=== PATIENT | male | born 1965 | race Caucasian/White ===

== ENCOUNTER 2017-05-25 09:41 | Emergency (ER) | payer OTHER ==
[~2017-05-25] VITALS: Ht 175.3 cm; Wt 83.9 kg
[~2017-05-25 09:41] MED LIST: AMLODIPINE BESYL5 MG PO; DOXAZOSIN MESYLA1 MG PO; LISINOPRIL40 MG PO; MACROBID 100 M100 MG PO; METFORMIN HCL500 MG PO; METOPROLOL SUCC25 MG PO; MINOCYCLINE HC100 M1 PO; OMEPRAZOLE20 MG PO
[2017-05-25] MEDS ORDERED: PROSCAR5 MG PO (10:06)
[2017-05-25] MEDS ORDERED: FLOMAX0.4 MG PO (10:06)
[2017-05-25] MEDS ORDERED: NORCO 5-325 TA1 EACH PO (10:16)
[2017-05-25] MEDS ORDERED: BACLOFEN10 MG PO (10:16)
[2017-05-25] MEDS ORDERED: METHYLPREDNISOLO4 M1 PO (10:16)
== END 2017-05-25 10:49 | disposition home or self-care (01) ==
LOC: ED 09:41
DX: M54.40 Lumbago with sciatica, unspecified side (principal); I10 Essential (primary) hypertension; K21.9 Gastro-esophageal reflux disease without esophagitis; E11.9 Type 2 diabetes mellitus without complications; Z88.2 Allergy status to sulfonamides; Z88.1 Allergy status to other antibiotic agents; Z88.0 Allergy status to penicillin; Z88.8 Allergy status to other drugs, medicaments and biological substances; Z79.899 Other long term (current) drug therapy; Z79.84 Long term (current) use of oral hypoglycemic drugs
CPT/HCPCS: 96374; 99283; J1100

== ENCOUNTER 2020-01-20 12:47 | Emergency (ER) | payer OTHER ==
[~2020-01-20] VITALS: Ht 175.3 cm; Wt 83.9 kg
--- OUTSIDE RECORDS SUMMARY | ~2020-01-20 | XMS | Encounter Summary ---
Demographics + + + | Address | [address] | | | [place] [address] | + + + | Home Phone | | + + + | Preferred Language | Unknown | + + + | Marital Status | | + + + | Alevism Affiliation | Unknown | + + + | Race | Unknown | + + + | Ethnic Group | Unknown | + + + Author + + + | Author | [facility] | | | and [place] | + + + | Organization | [facility] | | | and [place] | + + + | Address | Unknown | + + + | Phone | Unavailable | + + + Support + + +---------+ + | Name | Relationship | Address | Phone | + + +---------+ + | Mary Crook | ECON | Unknown | | + + +---------+ + Care Team Providers + +------+ + | Care Curtain Feller Blindstitch Name | Role | Phone | + +------+ + | Hayden Mueller DO | PCP | | + +------+ + Encounter Details +--------+ + + + + | Date | Type | Department | Care Team | Description | +--------+ + + + + | 10/17/ | Imaging | [facility] | Provider, | | | 2018 | Exam | [facility] | [address] | | | | | IM[address] | | | | | [address] [place] | [place] [address] | | | | | [place] [address] | | | | | | [phone] | | | +--------+ + + + + Social History + +-------+ +--------+------+ | Tobacco Use | Types | Packs/Day | Years | Date | | | | | Used | | + +-------+ +--------+------+ | Never Assessed | | | | | + +-------+ +--------+------+ + + + | Sex Assigned at | Date Recorded | | | | + + + | Not on file | | + + + + + + + | Job Start Date | Occupation | Industry | + + + + | Not on file | Not on file | Not on file | + + + + + + + + | Travel History | Travel Start | Travel End | + + + + + + | No recent travel history available. | + + documented as of this encounter Plan of Treatment Not on filedocumented as of this encounter Procedures + +--------+ + + + | Procedure Name | Priori | Date/Time | Associated Diagnosis | Comments | | | ty | | | | + +--------+ + + + | XR LUMBAR SPINE 4 + | Routin | 06/16/2017 | | Results for this | | VW | e | 12:05 PM | | procedure are in the | | | | PDT | | results section. | + +--------+ + + + documented in this encounter Results XR Lumbar Spine 4 + Vw (06/16/2017 12:05 PM PDT) + + | Specimen | + + | | + + + + + | Narrative | Performed At | + + + | External films for comparison only - no result from [facility]. | [facility] | + + + + +---------+ + + | Performing | Address | City/State/Zipcode | Phone Number | | Organization | | | | + +---------+ + + | [facility] | | | | + +---------+ + + documented in this encounter Visit Diagnoses Not on filedocumented in this encounter"
--- OUTSIDE RECORDS SUMMARY | ~2020-01-20 | XMS | Clinical Summary ---
Demographics + + + | Address | [address] | | | [place] [address] | + + + | Home Phone | | + + + | Preferred Language | Unknown | + + + | Marital Status | | + + + | Gnosticism Affiliation | Unknown | + + + | Race | White | + + + | Ethnic Group | Not or | + + + Author + + + | Author | NON REVENUE LOCATIONS | + + + | Organization | NON REVENUE LOCATIONS | + + + | Address | Unknown | + + + | Phone | Unavailable | + + + Support + + +---------+ + | Name | Relationship | Address | Phone | + + +---------+ + | Ruthann Crook | ECON | Unknown | | + + +---------+ + Care Team Providers + +------+ + | Care Painter Helper Sign Name | Role | Phone | + +------+ + | Hayden Mueller DO | PCP | | + +------+ + Source Comments YAJAIRA is fully live on both [facility] Ambulatory and [facility] InPatient.[facility] Allergies + + + + + + | Active Allergy | Reactions | Severity | Noted | Comments | | | | | Date | | + + + + + + | Penicillins | Unknown | | 06/12/20 | | | | | | 13 | | + + + + + + | Sulfacetamide | Pruritus | | 06/12/20 | | | | | | 13 | | + + + + + + Medications + + + +---------+------+------+-------+ | Medication | Sig | Dispensed | Refills | Star | End | Statu | | | | | | t | Date | s | | | | | | Date | | | + + + +---------+------+------+-------+ | lisinopril 40 mg | Take 40 mg by mouth | | 0 | | | Activ | | Oral tablet | once daily. | | | | | e | + + + +---------+------+------+-------+ | OMEPRAZOLE ORAL | Take 20 mg by mouth. | | 0 | | | Activ | | | | | | | | e | + + + +---------+------+------+-------+ | Minocycline HCl | Take 100 mg by mouth | | 0 | | | Activ | | 100 mg Oral tablet | every twelve hours. | | | | | e | + + + +---------+------+------+-------+ | metoprolol | Take 50 mg by mouth | | 0 | | | Activ | | succinate 50 mg Oral | once daily at | | | | | e | | tablet extended | bedtime. 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 | + + + | Epistaxis | 06/12/2013 | + + + | Family history of genetic disorder | 06/12/2013 | + + + | Hypertension | 06/12/2013 | + + + Family History + + +-------+ + | Medical History | Relation | Name | Comments | + + +-------+ + | GI bleeding | Father | | | + + +-------+ + | HHT (hereditary | Father | | + gnetic test | | hemorrhagic | | | | | telangiectasia) | | | | + + +-------+ + | HHT (hereditary | Sister | juhi | + gnetic test | | hemorrhagic | | | | | telangiectasia) | | | | + + +-------+ + | PAVF (pulmonary | Sister | juhi | | | arteriovenous | | | | | fistula) | | | | + + +-------+ + | Non-contributory | Sister | rose mary | - gnetic test | + + +-------+ + + + + + + | Relation | Name | Status | Comments | + + + + + | Daughter | Kimberely | Alive | epistaxis. children: Talon (6), Nemo (3), | | | | | Denise(1) | + + + + + | Father | | Alive | prostate/bladder cancer,HTN, hht | + + + + + | Maternal Grandfather | | | | + + + + + | Maternal Grandmother | | | | + + + + + | Mother | | Alive | breast cancer,HTN | + + + + + | Paternal Grandfather | | | | + + + + + | Paternal Grandmother | | | | + + + + + | Sister | | Alive | kidney problems | + + + + + | Sister | | Alive | HHT | + + + + + | Sister | juhi | | | + + + + + | Sister | rose mary | | | + + + + + | Kareem | Matthew | Alive | occ epistaxis. children: man (2), Sussy | | | | | (1) | + + + + + Social History + +-------+ +--------+------+ | Tobacco Use | Types | Packs/Day | Years | Date | | | | | Used | | + +-------+ +--------+------+ | Never Smoker | | | | | + +-------+ +--------+------+ + + +---------+ + | Alcohol Use | Drinks/Week | oz/Week | Comments | + + +---------+ + | No | | | | + + +---------+ + + + + | Sex Assigned at [...] recent travel history available. | + + Last Filed Vital Signs + + + + + | Vital Sign | Reading | Time Taken | Comments | + + + + + | Blood Pressure | 173/109 | 06/12/2013 2:28 PM | | | | | PDT | | + + + + + | Pulse | 93 | 06/12/2013 2:28 PM | | | | | PDT | | + + + + + | Temperature | 36.7 C (98 F) | 06/12/2013 2:28 PM | | | | | PDT | | + + + + + | Respiratory Rate | 16 | 06/12/2013 2:28 PM | | | | | PDT | | + + + + + | Oxygen Saturation | 98% | 06/12/2013 2:28 PM | | | | | PDT | | + + + + + | Inhaled Oxygen | - | - | | | Concentration | | | | + + + + + | Weight | 83.6 kg (184 lb 3.2 | 06/12/2013 2:28 PM | | | | oz) | PDT | | + + + + + | Height | 175.3 cm (5' 9") | 06/12/2013 2:28 PM | | | | | PDT | | + + + + + | Body Mass Index | 27.2 | 06/12/2013 2:28 PM | | | | | PDT | | + + + + + Plan of Treatment + + + + + | Health Maintenance | Due Date | Last Done | Comments | + + + + + | Influenza (Flu) | | | | | vaccination (#1) | 9 | | | + + + + + | Pneumococcal | Aged Out | | No longer eligible | | vaccination | | | based on patient's | | | | | age to complete this | | | | | topic | + + + + + Results Not on filefrom Last 3 Months Insurance + +--------+ +--------+-------+---------+------+ | Payer | Benefi | Subscriber | Effect | Phone | Address | Type | | | t Plan | ID | [place] | | | | | | / | | Dates | | | | | | Group | | | | | | + +--------+ +--------+-------+---------+------+ | [employer] | PROVID | [id number] | Effect | | | PPO | | | ENCE | | [place] | | | | | | PREF | | for | | | | | | | | all | | | | | | | | dates | | | | + +--------+ +--------+-------+---------+------+ + +--------+ +--------+ + + | Guarantor Name | Accoun | Relation to | Date | Phone | Billing Address | | | t Type | Patient | of | | | | | | | | | | + +--------+ +--------+ + + | Edgard Crook | Person | Self [birth year] | [address] | | | al/Fam | | 1965 | [phone] | [place] | | | [place] | | | 0 (Home) | [id number] | + +--------+ +--------+ + +
--- OUTSIDE RECORDS SUMMARY | ~2020-01-20 | XMS | Encounter Summary ---
Demographics + + + | Address | [address] | | | [place] [address] | + + + | Home Phone | | + + + | Preferred Language | Unknown | + + + | Marital Status | | + + + | Restorationist Affiliation | Unknown | + + + | Race | Unknown | + + + | Ethnic Group | Unknown | + + + Author + + + | Author | [facility] | | | and [place] | + + + | Organization | [facility] | | | and [place] [...] Team Providers + +------+ + | Care Electrical And Radio Aircraft Mechanic Name | Role | Phone | + +------+ + | Hayden Mueller DO | PCP | | + +------+ + Reason for Visit + + + | Reason | Comments | + + + | Medication Refill | Gabapentin 300 mg | + + + Encounter Details +--------+--------+ + + + | Date | Type | Department | Care Team | Description | +--------+--------+ + + + | 05/30/ | Refill | [facility] | Win, | Medication Refill | | 2017 | | [address] [address] | [address] | (Gabapentin 300 mg ) | | | | [address] | [address] | | | | | [place], [place] | [place] [address] | | | | | [address] | [phone] | | | | | [phone] | | | +--------+--------+ + + + Social History + +-------+ +--------+------+ | Tobacco Use | Types | Packs/Day | Years | Date | | | | | Used | | + +-------+ +--------+------+ | Never Smoker | | | | | + +-------+ +--------+------+ + +---+---+---+ | Smokeless Tobacco: | | | | | Never Used | | | | + +---+---+---+ + + +---------+ + | Alcohol Use | Drinks/Week | oz/Week | Comments | + + +---------+ + | Yes | | | RARE | + + +---------+ + + + [...] Not on filedocumented as of this encounter Visit Diagnoses Not on filedocumented in this encounter"
--- OUTSIDE RECORDS SUMMARY | ~2020-01-20 | XMS | Encounter Summary ---
Demographics + + + | Address | [address] | | | [place] [address] | + + + | Home Phone | | + + + | Preferred Language | Unknown | + + + | Marital Status | | + + + | Buddhism Affiliation | Unknown | + + + | Race | Unknown | + + + | Ethnic Group | Unknown | + + + Author + + + | Author | [facility] | | | and [place] | + + + | Organization | [facility] | | | and [place] | [...] Team Providers + +------+ + | Care Apns Name | Role | Phone | + +------+ + | Hayden Mueller DO | PCP | | + +------+ + Reason for Visit + + + | Reason | Comments | + + + | Back Pain | low back pain | + + + | Neck Pain | right sided neck pain with numbness into right hand | + + + Evaluate & Treat (Routine) +--------+--------+ + + + + | Status | Reason | Specialty | Diagnoses / | Referred By | Referred To | | | | | Procedures | Contact | Contact | +--------+--------+ + + + + | Closed | | Physical | Diagnoses | Ervin, | Rafaela | | | | Medicine and | Cervical | Hayden Mandel DO | Jesu Her MD | | | | Rehabilitatio | radiculopath | [id number] | [address] | | | | n | y | [address] | [facility] | | | | | | E [address] | [facility] [address] | | | | | | [phone] | [address] Phone: | | | | | | [place] | [phone] | | | | | | [address] | Fax: | | | | | | Phone: | [phone] | | | | | | [phone] | | +--------+--------+ + + + + Encounter Details +--------+---------+ + + + | Date | Type | Department | Care Team | Description | +--------+---------+ + + + | 11/10/ | Office | [facility] | Bogdanowicz, | Cervical | | 2017 | Visit | PHYSIATRY [address] | [address] | radiculopathy - | | | | [address] | [address] | right; Neck pain on | | | | [address] | [place] [address] | right side; Chronic | | | | [address] | [phone] | bilateral low back | | | | [phone] | | pain with bilateral | | | | | | sciatica | +--------+---------+ + + + Social History + +-------+ [...] + + documented as of this encounter Last Filed Vital Signs + + + + + | Vital Sign | Reading | Time Taken | Comments | + + + + + | Blood Pressure | 154/98 | 11/10/2017 10:53 AM | | | | | PST | | + + + + + | Pulse | 112 | 11/10/2017 10:53 AM | | | | | PST | | + + + + + | Temperature | - | - | | + + + + + | Respiratory Rate | - | - | | + + + + + | Oxygen Saturation | - | - | | + + + + + | Inhaled Oxygen | - | - | | | Concentration | | | | + + + + + | Weight | 81.6 kg (180 lb) | 11/10/2017 10:53 AM | | | | | PST | | + + + + + | Height | 175.3 cm (5' 9") | 11/10/2017 10:53 AM | | | | | PST | | + + + + + | Body Mass Index | 26.58 | 11/10/2017 10:53 AM | | | | | PST | | + + + + + documented in this encounter Patient Instructions Patient Instructions Myra Walden PA-C - 11/10/2017 10:40 AM PSTLumbar and cervical MRI to be done in [place] , we will call you once approved by insurance, YOU CALL US WHEN IMAGES ARE DONE Pinched nerve in neck Treatment options after depending on images to include physical therapy, medications, stero id injections documented in this encounter Progress Notes Myra Walden PA-C - 11/10/2017 10:40 AM PSTFormatting of this note might be differe nt from the original. Myra Walden PA-C [address] [facility], [address] [place], [place] [id number] FAX: PHYSICAL MEDICINE AND REHABILITATION H&P CHIEF COMPLAINT: Chief Complaint Patient presents with Back Pain low back pain Neck Pain right sided neck pain with numbness into right hand HISTORY OF PRESENT ILLNESS: The patient is a 52 y.o. male being seen today for complaints of neck pain, right side radiation into the first three fingers with numbness that began thr ee month ago from no specific injury, along with chronic low back pain that has been worseni ng in the last year. He describes the pain as a aching, sharp, throbbing and tight band feeling. He rates the p ain as moderate. His symptoms worsen with flexion of the neck which reproduces right side ar m pain and numbness into the first three fingers. His symptoms improve with extension of th e neck. He also has increased neck pain with sleeping. His low back pain is a constant dull aching, worse after prolonged sitting, improved with m ovement. He was having left leg symptoms, but this has improved, it traveled into the left buttocks, left lateral thigh to the knee. The patient does describe numbness of the right hand, first three fingers, denies numbness of the legs. He does not report weakness of the legs, but reports weakness on the right johansen nd. He does not have bowel and bladder dysfunction. He does not have saddle anesthesia. Treatments for these complaints have included use of NSAIDS and narcotics. Patient's medications, allergies, past medical, surgical, social and family histories were reviewed and updated as appropriate. PAST MEDICAL HISTORY: Past Medical History: Diagnosis Date Abnormal prostate specific antigen Abnormal weight gain Allergic rhinitis due to pollen Asthma Benign essential hypertension Benign prostatic hyperplasia Bursitis of shoulder Cervical radiculopathy - right 11/10/2017 Cervical somatic dysfunction Chronic bilateral low back pain with bilateral sciatica 11/10/2017 Chronic prostatitis Encounter for routine adult health examination Fatigue GERD (gastroesophageal reflux disease) History of migraine Hyperglycemia Hypothyroidism Iliotibial band friction syndrome of both knees Left Low back pain Neck pain Neck pain on right side 11/10/2017 Pain in unspecified hip Radiculopathy, cervical region Refractory migraine with aura Shoulder joint painful on movement bilateral Somatic dysfunction of lumbar region Somatic dysfunction of pelvic region Somatic dysfunction of thoracic region Somatic dysfunction of upper extremities Tension type headache Type 2 diabetes mellitus without complication (HCC) Vitamin D deficiency PAST SURGICAL HISTORY: Past Surgical History: Procedure Laterality Date WISDOM TOOTH EXTRACTION 1975 impacted CURRENT MEDICATIONS: Current Outpatient Prescriptions Medication Sig Dispense Refill albuterol (PROVENTIL HFA) 90 mcg/puff inhaler Inhale 2 puffs into the lungs 4 times eugenie ly. amLODIPine (NORVASC) 10 MG tablet Take 1 tablet by mouth Daily. finasteride (PROSCAR) 5 mg tablet Take 5 mg by mouth Daily. lisinopril (PRINIVIL,ZESTRIL) 40 MG tablet Take 1 tablet by mouth 2 times daily. metFORMIN (GLUCOPHAGE-XR) 500 mg 24 hr tablet Take 1 tablet by mouth 2 times daily. minocycline (MINOCIN,DYNACIN) 100 MG capsule Take 1 capsule by mouth Daily. omeprazole (PRILOSEC) 20 mg capsule Take 1 capsule by mouth Daily. piroxicam (FELDENE) 20 MG capsule Take 20 mg by mouth Daily. tamsulosin (FLOMAX) 0.4 mg CAPS Take 0.4 mg by mouth 2 times daily. triamcinolone acetonide (KENALOG) 40 mg/mL injection Inject 1.5 mLs as directed Daily. No current facility-administered medications for this visit. ALLERGIES: Allergies Allergen Reactions Sulfa Antibiotics Anaphylaxis, Itching and Rash Sulfamethoxazole-Trimethoprim Anaphylaxis Ciprofloxacin Other (See Comments) Tendon pain Penicillins Rash SOCIAL HISTORY: The patient reports that he has never smoked. He has never used smokeless tobacco. He repo rts that he drinks alcohol. He reports that he does not use drugs. FAMILY HISTORY: Family History Problem Relation Age of Onset Diabetes Mother Other cancer Father Bladder Other (see comment) Father Prostate surgery High blood pressure Father No Known Problems Maternal Grandmother No Known Problems Maternal Grandfather No Known Problems Paternal Grandmother No Known Problems Paternal Grandfather Arthritis Other Diabetes Other Gout Other Heart disease Other REVIEW OF SYSTEMS: GENERALLY: No fever, chills, no night sweats, no weight gain, no weight loss, no anemia, +fatigue. EYES: No eye problems, no impaired sight, +eye glasses/contacts, no eye injury, no double vision, no transient blindness. EARS, NOSE, THROAT and MOUTH: No change in sense taste/smell, no hearing difficulty, +ring ing in ears, no drainage from ears, no ear injury, no dizziness, no voice change, no difficu lty swallowing, no snoring, no sleep apnea/CPAP, no sinus trouble, no dental work. NEUROMUSCULAR: No numbness/pain of arms, no numbness/pain of legs, no awake with numbness/ pain, +weakness, +muscle aching, no coordination difficulty, no change in walk, no head inju ry, no neck injury, no back injury, +pain in neck, +pain in back, no stroke, no fainting spe lls, no loss of consciousness, no tremor/shaking, no seizures, +headaches, +migraines, no me mandy loss, no speech difficulty, no confusion, no numbness of face. PSYCHIATRIC: No depression, no difficulty sleeping, no anxiety, no bipolar disorder. CARDIOVASCULAR/PULMONARY: No heart attack, no heart murmur, no fluttering heart, no shortn ess of breath, no cough, no Tuberculosis, no chest pain, no swelling ankles, no bloody cough ing, +asthma, no COPD/emphysema. GASTROINTESTINAL: No bowel disease, no nausea/vomiting, no rectal bleeding/hemorroids, no constipation, no fecal/stool incontinence, no liver/gallbladder disease, no abdominal pain. KIDNEY DISEASE: +frequent urination, no painful/difficult with urination, no urinary incont inence, no bladder problems, no impotence, no irregular period, no vaginal discharge. ENDOCRINE: No diabetes, no thyroid disease, no osteoporosis/osteopenia, no drainage from br easts. INTEGUMENTARY/SKIN: No lump in breasts, no skin disease or skin changes, no rash/itch. HEMATOLOGIC: No enlarged lymph nodes, no ease or unusual bleeding, +cancer. RHEUMATOLOGIC: No joint pain/arthritis, no Rheumatoid Arthritis PHYSICAL EXAMINATION: Vitals: 11/10/17 1053 BP: (!) 154/98 Pulse: 112 PainSc: 3 PainLoc: Neck Body mass index is 26.58 kg/m. GENERAL: The patient is well developed and well nourished. He does not appear uncomfortabl e when seated. HEENT: HEAD/FACE: EYES: EARS: NASOPHARNYX: OROPHARNYX: Normocephalic and atraumatic. There are no areas of recent trauma. Normal sclerae without icterus. No drainage or tenderness. Clear without drainage. Clear without erythema. SKIN Limited skin exam shows no significant rashes or lesions. There are not scars in the cervical or lumbar region. CHEST: The patient is in no acute respiratory distress with unlabored respirations. HEART: There is not lower extremity edema. ABDOMEN: The patient is not overweight. NEUROLOGIC: The patient is awake, alert, and oriented to time, place, person. He follows simple and complex commands. His speech is fluent. He comprehends speech well. He has no apparent deficits with short or intermodal dispatcher memory. He has appropriate fund of knowledge Cranial nerves 2-12 appear grossly intact. Sensory exam does not show diminished sensation to light touch in the lower extremities. REFLEX: RIGHT LEFT BICEPS 2+ 2+ BRACHIORADIALIS 2+ 2+ TRICEPS 1+ 2+ PATELLAR 2+ 2+ ACHILLES 1+ 1+ ROCHA'S Negative Negative PLANTAR Downgoing Downgoing MUSCULOSKELETAL There is no tenderness in the midline of the cervical or thoracic spine. T here is no major palpable deformity of the spine. He sits with his head leaning towards the left. Range of motion testing of the cervical spine was unremarkable. Spurling sign was posi tive on the right. Shoulder examination shows well preserved range of motion with external rotation, internal rotation and abduction. Impingement testing was Negative. There was no tenderness over th e bicipital groove or over the AC joint. Speed's test was Negative. Empty can test was Nega tive. Strength testing, including strength testing of the infraspinatus, supraspinatus an d subscapularis, in bilateral upper extremities showed 5/5 strength with no focal weakness. Straight leg raise and slump-sit are negative. Jamison's maneuver and impingement testing were negative for any groin pain. There was no tenderness to palpation over the greater tr ochanters or sacral sulci. The patient localized the majority of the pain to the L4/L5, L5/ S1 region and into the left lateral thigh. Lumbar facet loading was positive. Strength mamadou ting showed 5/5 strength throughout the lower extremities. The patient was able to heel and toe walk without difficulty. There was no redness, effusion, warmth or joint line tenderne ss in the knees or ankles. RADIOGRAPHIC REVIEW: The patient's imaging was reviewed in detail with the patient today during the visit. Lumb ar xray from 05/2017 shows lumbar DDD with disc space narrowing and facet arthritis at L4/L5, L5/S1. ASSESSMENT: 1. Cervical radiculopathy - right 2. Neck pain on right side 3. Chronic bilateral low back pain with bilateral sciatica PLAN: 1. Possible disc herniation/pinched nerve in neck, cervical MRI to assess for this. 2. Lumbar MRI to assess disc space narrowing at L4/L5, L5/S1 with possible left L5 nerve r oot impingement. 3. After images are obtained, follow up to discuss treatment plan. Start with PT, neuropat hic pain medications and steroid injections. ELECTRONICALLY SIGNED BY: Myra Walden PA-C, 11/10/2017 CC: Hayden Mueller documented in t his encounter Plan of Treatment Not on filedocumented as of this encounter Procedures + +--------+ + + + | Procedure Name | Priori | Date/Time | Associated Diagnosis | Comments | | | ty | | | | + +--------+ + + + | IMAGING REPORT - | | 12/02/2017 | | Results for this | | EXTERNAL SCAN | | 2:49 PM | | procedure are in the | | | | PDT | | results section. | + +--------+ + + + | IMAGING REPORT - | | 11/29/2017 | | Results for this | | EXTERNAL SCAN | | 12:00 AM | | procedure are in the | | | | PDT | | results section. | + +--------+ + + + | IMAGING REPORT - | | 11/29/2017 | | Results for this | | EXTERNAL SCAN | | 12:00 AM | | procedure are in the | | | | PDT | | results section. | + +--------+ + + + | IMAGING REPORT - | | 10/17/2017 | | Results for this | | EXTERNAL SCAN | | 12:00 AM | | procedure are in the | | | | PST | | results section. | + +--------+ + + + documented in this encounter Results IMAGING REPORT - EXTERNAL SCAN (12/02/2017 2:49 PM PDT) + + + | Narrative | Performed At | + + + | Ordered by an | | | unspecified provider. | | + + + IMAGING REPORT - EXTERNAL SCAN (11/29/2017 12:00 AM PDT) + + + | Narrative | Performed At | + + + | Ordered by an | | | unspecified provider. | | + + + IMAGING REPORT - EXTERNAL SCAN (11/29/2017 12:00 AM PDT) + + + | Narrative | Performed At | + + + | Ordered by an | | | unspecified provider. | | + + + IMAGING REPORT - EXTERNAL SCAN (10/17/2017 12:00 AM PST) + + + | Narrative | Performed At | + + + | Ordered by an | | | unspecified provider. | | + + + documented in this encounter Visit Diagnoses + + | Diagnosis | + + | Cervical radiculopathy - right Brachial neuritis or radiculitis nos | + + | Neck pain on right side Cervicalgia | + + | Chronic bilateral low back pain with bilateral sciatica | + + documented in this encounter
--- OUTSIDE RECORDS SUMMARY | ~2020-01-20 | XMS | Encounter Summary ---
Demographics + + + | Address | [address] | | | [place] [address] | + + + | Home Phone | | + + + | Preferred Language | Unknown | + + + | Marital Status | | + + + | Shinto Affiliation | Unknown | + + + | Race | Unknown | + + + | Ethnic Group | Unknown | + + + Author + + + | Author | [facility] | | | and [place] | + + + | Organization | [facility] | | | and [place] [...] Team Providers + +------+ + | Care Materials Assistant Name | Role | Phone | + [...] | [address] | [place] [address] | | | | | [place] [address] | | | | | | [phone] | | | +--------+ + + + [...]
--- OUTSIDE RECORDS SUMMARY | ~2020-01-20 | XMS | Encounter Summary ---
Demographics + + + | Address | [address] | | | [place] [address] | + + + | Home Phone | | + + + | Preferred Language | Unknown | + + + | Marital Status | | + + + | Anabaptist Affiliation | Unknown | + + + | Race | Unknown | + + + | Ethnic Group | Unknown | + + + Author + + + | Author | [facility] | | | and [place] | + + + | Organization | [facility] | | | and [place] | + + + | Address | Unknown | + + + | Phone | Unavailable | + + + Support + + +---------+ + | Name | Relationship | Address | Phone | + + +---------+ + | Mary Croko | ECON | Unknown | | + + +---------+ + Care Team Providers + +------+ + | Care Sales Project Administrator Name | Role | Phone | + +------+ + | Hayden Mueller DO | PCP | | + +------+ + Encounter Details +--------+ + + + + | Date | Type | Department | Care Team | Description | +--------+ + + + + | 11/10/ | Imaging | [facility] | Provider, | | | 2018 | Exam | [facility] | [address] | | | | | IMAGING [address] | [address] | | | | | [address] | [place] [address] | | | | | [place] [address] | | | | | | [phone] | | | +--------+ + + + [...] + +--------+ + + + | XR CERVICAL SPINE 4 | Routin | 10/17/2017 | | Results for this | | OR 5 VWS | e | 2:30 PM | | procedure are in the | | | | PST | | results section. | + +--------+ + + + documented in this encounter Results XR Cervical Spine 4 or 5 Vws (10/17/2017 2:30 PM PST) + + | Specimen | + + [...]
--- OUTSIDE RECORDS SUMMARY | ~2020-01-20 | XMS | Encounter Summary ---
Demographics + + + | Address | [address] | | | [place] [address] | + + + | Home Phone | | + + + | Preferred Language | Unknown | + + + | Marital Status | | + + + | Latter-Day Affiliation | Unknown | + + + | Race | White | + + + | Ethnic Group | Not or | + + + Author + + + | Author | [facility] | + + + | Organization | [facility] | + + + | Address | Unknown | + + + | Phone | Unavailable | + + + Support + + +---------+ + | Name | Relationship | Address | Phone | + + +---------+ + | Ruthann Crook | ECON | Unknown | | + + +---------+ + Care Team Providers + +------+ + | Care Design Teacher Name | Role | Phone | + +------+ + | Hayden Mueller DO | PCP | | + +------+ + Reason for Visit Diagnostic Testing (Routine) +--------+--------+ + + + + | Status | Reason | Specialty | Diagnoses / | Referred By | Referred To | | | | | Procedures | Contact | Contact | +--------+--------+ + + + + | Closed | | Cardiology | Diagnoses | [place], | Car Echo | | | | | HHT | MD Carlos | [facility] [address] | | | | | (hereditary | [address] | | | | | hemorrhagic | [address] | [address] [address] | | | | | telangiectas | [address] | [place] | | | | | ia) ([facility]) | [place], [place] | [facility], [address] | | | | | Procedures | [address] | floor | | | | | TRANSTHORACI | Phone: | [place], [place] | | | | | C | [phone] | [address] | | | | | ECHOCARDIOGR | Fax: | Phone: | | | | | AM, ADULT | [phone] | [phone] | +--------+--------+ + + + + Encounter Details +--------+ + + + + | Date | Type | Department | Care Team | Description | +--------+ + + + + | 06/12/ | Hospital | Cardiac | | | | 2012 | Encounter | Non-Invasive Testing | | | | | | at [place] | | | | | | [address] | | | | | | [address] | | | | | | [facility] | | | | | | [place], [place] | | | | | | [address] | | | | | | [phone] | | | +--------+ + + + [...] + + documented as of this encounter Medications at Time of Discharge + + + +---------+--------+ + | Medication | Sig | Dispensed | Refills | Start | End Date | | | | | | Date | | + + + +---------+--------+ + | lisinopril 40 mg | Take 40 mg by mouth | | 0 | | | | Oral tablet | once daily. | | | | | + + + +---------+--------+ + | metoprolol | Take 50 mg by mouth | | 0 | | | | succinate 50 mg Oral | once daily at | | | | | | tablet extended | bedtime. | | | | | | release 24 | Indications: | | | | | | hrIndications: | HYPERTENSION | | | | | | hypertension | | | | | | + + + +---------+--------+ + | Minocycline HCl | Take 100 mg by mouth | | 0 | | | | 100 mg Oral tablet | every twelve hours. | | | | | + + + +---------+--------+ + | OMEPRAZOLE ORAL | Take 20 mg by mouth. | | 0 | | | + + + +---------+--------+ + documented as of this encounter Progress Notes Sai Mejia - 06/12/2013 2:13 PM PDTTransthoracic echocardiogram completed. Final repor t to follow. documented in this encounte r Plan of Treatment Not on filedocumented as of this encounter Procedures + +--------+ + + + | Procedure Name | Priori | Date/Time | Associated Diagnosis | Comments | | | ty | | | | + +--------+ + + + | TRANSTHORACIC | Routin | 06/12/2013 | HHT (hereditary | Results for this | | ECHOCARDIOGRAM, | e | 12:00 AM | hemorrhagic | procedure are in the | | ADULT | | PDT | telangiectasia) | results section. 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
--- OUTSIDE RECORDS SUMMARY | ~2020-01-20 | XMS | Encounter Summary ---
Demographics + + + | Address | [address] | | | [place] [address] | + + + | Home Phone | | + + + | Preferred Language | Unknown | + + + | Marital Status | | + + + | Taoist Affiliation | Unknown | + + + | Race | White | + + + | Ethnic Group | Not or | + + + Author + + + | Author | [facility] | + + + | Organization | [facility] | + + + | Address | Unknown | + + + | Phone | Unavailable | + + + Support + + +---------+ + | Name | Relationship | Address | Phone | + + +---------+ + | Ruthann Crook | ECON | Unknown | | + + +---------+ + Care Team Providers + +------+ + | Care Water Treatment Plant Supervisor Name | Role | Phone | + +------+ + | Hayden Mueller DO | PCP | | + +------+ + Encounter Details +--------+ + + + + | Date | Type | Department | Care Team | Description | +--------+ + + + + | 06/12/ | Results | Interventional | Carlos Daniel MD | | | 2012 | Only | [facility] at [facility] | [address] | | | | | [address] | [address] | | | | | Loop Physician's | [place], [place] | | | | | [address], 2nd floor | [address] | | | | | [place], [place] | [phone] | | | | | [address] | | | | | | [phone] | | | +--------+ + + + [...] | + +--------+ + + + | EJECTION FRACTION | Routin | 06/12/2013 | | Results for this | | | e | 1:14 PM | | procedure are in the | | | | PDT | | results section. | + +--------+ + + + | MRA BRAIN WO | Routin | 06/12/2013 | | Results for this | | CONTRAST | e | 1:04 PM | | procedure are in the | | | | PDT | | results section. | + +--------+ + + + documented in this encounter Results EJECTION FRACTION (06/12/2013 1:14 PM PDT) + + + + + + | Component | Value | Ref Range | Performed | Pathologist | | | | | At | Signature | + + + + + + | EJECTION | 50 - 55%Comment: EF | | [facility] DEPT | | | FRACTION | Recorded from | | OF | | | | Transthoracic | | CARDIOLOGY | | | | Echocardiogram | | | | + + + + + + | BIPLANE, EF | 42.9 | | [facility] | | | | | | OF | | | | | | CARDIOLOGY | | + + + + + + + + | Specimen | + + | | + + + + + + + | Performing | Address | City/State/Zipcode | Phone Number | | Organization | | | | + + + + + | [facility] DEPT OF | [address] | [place], [place] | | | CARDIOLOGY | [address] | [address] | | + + + + + MRA BRAIN WO CONTRAST (06/12/2013 1:04 PM PDT) + + + + + + | Component | Value | Ref Range | Performed | Pathologist | | | | | At | Signature | + + + + + + | MR MRA | MRI BRAIN WITH AND | | | | | BRAIN WO | WITHOUT CONTRAST, MRA | | | | | CONT | BRAIN WITHOUT | | | | | | CONTRAST.06/12/1313:04:0 | | | | | | 0. INDICATION: Rule out | | | | | | vascular malformation, | | | | | | HHtCOMPARISON: None | | | | | | TECHNIQUE: Multiplanar, | | | | | | multi-sequence MR | | | | | | imaging of the entire | | | | | | brain wasperformed with | | | | | | and without intravenous | | | | | | gadolinium contrast. 3D | | | | | | Time of flightMRA of the | | | | | | brain was performed | | | | | | without contrast. 3D | | | | | | reconstructions | | | | | | wereperformed on an | | | | | | independent workstation. | | | | | | FINDINGS: | | | | | | Skull/Marrow/Soft | | | | | | tissues: Unremarkable | | | | | | Orbits/Optic nerves: | | | | | | Normal Sinuses: Clear | | | | | | Brain: No significant | | | | | | cerebral abnormality. | | | | | | Specifically, no | | | | | | evidence | | | | | | ofhydrocephalus, | | | | | | neoplasm, | | | | | | infectious/inflammatory | | | | | | process, acute | | | | | | infarction,vascular | | | | | | lesion, or congenital | | | | | | abnormality. | | | | | | Enhancement: No | | | | | | abnormal enhancement. | | | | | | Additional Comments: | | | | | | None MRA Brain:Anterior | | | | | | Circulation:No | | | | | | hemodynamically | | | | | | significant stenosis or | | | | | | occlusion. Noevidence | | | | | | for aneurysm.Posterior | | | | | | Circulation::No | | | | | | hemodynamically | | | | | | significant stenosis or | | | | | | occlusion. Noevidence | | | | | | for aneurysm. Dominant | | | | | | left vertebral artery. | | | | | | IMPRESSION:1. Normal | | | | | | MRI of the brain with | | | | | | and without contrast. | | | | | | No evidence | | | | | | forvascular | | | | | | malformation.2. Normal | | | | | | MRA Brain. Attending | | | | | | Radiologists: LAURO | | | | | | KIKO PEREZuthor: | | | | | | LAURO PEREZ MD I | | | | | | have personally viewed | | | | | | this procedure/exam, | | | | | | reviewed this report, | | | | | | and madechanges to it | | | | | | where appropriate. | | | | | | Final/Electronically | | | | | | signed / LAURO | | | | | | CHRIS 06/12/2013 13:29 | | | | | | PM | | | | + + + + + + + + | Specimen | + + | | + + + +---------+ + + | Performing | Address | City/State/Zipcode | Phone Number | | Organization | | | | + +---------+ + + | [facility] DEPARTMENT OF | | | | | RADIOLOGY | | | | + +---------+ + + documented in this encounter Visit Diagnoses Not on filedocumented in this encounter"
--- OUTSIDE RECORDS SUMMARY | ~2020-01-20 | XMS | Encounter Summary ---
Demographics + + + | Address | [address] | | | [place] [address] | + + + | Home Phone | | + + + | Preferred Language | Unknown | + + + | Marital Status | | + + + | Baptism Affiliation | Unknown | + + + | Race | Unknown | + + + | Ethnic Group | Unknown | + + + Author + + + | Author | [facility] | | | and [place] | + + + | Organization | [facility] | | | and [place] | [...] Team Providers + +------+ + | Care Line Haul Owner Operator Name | Role | Phone | + +------+ + | Hayden Mueller DO | PCP | | + +------+ + Encounter Details +--------+ + + + + | Date | Type | Department | Care Team | Description | +--------+ + + + + | 11/30/ | Imaging | [facility] | Provider, | | | 2018 | Exam | [facility] | [address] | | | | | IMAGING [address] | | | | | [address] | [place] [address] | | | | | [place] [address] | | | | | | [phone] | | | +--------+ + + + [...] | + +--------+ + + + | MRI CERVICAL SPINE | Routin | 11/29/2017 | | Results for this | | WO CONTRAST | e | 9:10 AM | | procedure are in the | | | | PDT | | results section. | + +--------+ + + + documented in this encounter Results MRI Cervical Spine wo Contrast (11/29/2017 9:10 AM PDT) + + | Specimen | + + | | + + + + + | Narrative | Performed At | + + + | External films for comparison only - no result from [place]. | [facility] | + + + + +---------+ + + | Performing | Address | City/State/Zipcode | Phone Number | | Organization | | | | + +---------+ + + | [facility] | | | | + +---------+ + + documented in this encounter Visit Diagnoses Not on filedocumented in this encounter"
--- OUTSIDE RECORDS SUMMARY | ~2020-01-20 | XMS | Encounter Summary ---
Demographics + + + | Address | [address] | | | [place] [address] | + + + | Home Phone | | + + + | Preferred Language | Unknown | + + + | Marital Status | | + + + | Yazidism Affiliation | Unknown | + + + | Race | White | + + + | Ethnic Group | Not or | + + + Author + + + | Author | [facility] | + + + | Organization | [facility] | + + + | Address | Unknown | + + + | Phone | Unavailable | + + + Support + + +---------+ + | Name | Relationship | Address | Phone | + + +---------+ + | Ruthann Crook | ECON | Unknown | | + + +---------+ + Care Team Providers + +------+ + | Care Adult Literacy Instructor Name | Role | Phone | + +------+ + | Hayden Mueller DO | PCP | | + +------+ + Reason for Referral Diagnostic Testing (Routine) +--------+--------+ + + + + | Status | Reason | Specialty | Diagnoses / | Referred By | Referred To | | | | | Procedures | Contact | Contact | +--------+--------+ + + + + | Closed | | Cardiology | Diagnoses | Fredy, | | | | | | Hereditary | MD Carlos | | | | | | hemorrhagic | [address] | | | | | | kristal | [address] | | | | | | ia ([facility]) | Rd | | | | | | Procedures | [place], [place] | | | | | | TRANSTHORACI | [address] | | | | | | C | Phone: | | | | | | ECHOCARDIOGR | [phone] | | | | | | AM, ADULT | Fax: | | | | | | | [phone] | | +--------+--------+ + + + + Reason for Visit + + + | Reason | Comments | + + + | HHT - Hereditary | | | Hemorrhagic | | | Telangiectasia | | + + + Encounter Details +--------+ + + + + | Date | Type | Department | Care Team | Description | +--------+ + + + + | 11/03/ | Shuttle Fitting Supervisor | Interventional | Carlos Daniel MD | Hereditary | | 2017 | | [facility] | [address] | hemorrhagic | | | | [address] | [address] | telangiectasia (HCC) | | | | Loop Physician's | [place], [place] | (Primary Dx) | | | | Pavilion, 2nd floor | [address] | | | | | [place], [place] | [phone] | | | | | [address] | | | | | | [phone] | | | +--------+ + + + [...] as of this encounter Plan of Treatment + +------+--------+ + + | Name | Type | Priori | Associated Diagnoses | Order Schedule | | | | ty | | | + +------+--------+ + + | TRANSTHORACIC | ECG | Routin | Hereditary | Ordered: 11/03/2016 | | ECHOCARDIOGRAM, | | e | hemorrhagic | | | ADULT | | | telangiectasia (HCC) | | + +------+--------+ + + documented as of this encounter Visit Diagnoses + + | Diagnosis | + + | 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
--- OUTSIDE RECORDS SUMMARY | ~2020-01-20 | XMS | Encounter Summary ---
Demographics + + + | Address | [address] | | | [place] [address] | + + + | Home Phone | | + + + | Preferred Language | Unknown | + + + | Marital Status | | + + + | Scientologist Affiliation | Unknown | + + + | Race | Unknown | + + + | Ethnic Group | Unknown | + + + Author + + + | Author | [facility] | | | and [place] | + + + | Organization | [facility] | | | and [...] Team Providers + +------+ + | Care Leasing Property Manager Name | Role | Phone | + [...] | | | Rehabilitatio | radiculopath | [address] | [address] | | | | n | y | [address] | [facility] | | | | | | [place] | [facility] [place] | | | | | | [phone] | [address] Phone: | | | | | | [place] | [phone] | | | | | | [address] | Fax: | | | | | | Phone: | [phone] | | | | | | [phone] | | +--------+--------+ + + + + [...] on | | | | [place] | [place] [address] | right side; Chronic | | | | [address] | [phone] | bilateral low back | | | | [phone] | | pain with bilateral | | [...] and cervical MRI to be done in [place] , we will call you once approved by insurance, YOU CALL US WHEN IMAGES ARE DONE Pinched nerve in neck Treatment options after depending on images to include physical therapy, medications, stero id injections documented in this encounter Progress Notes Myra Walden PA-C - 11/10/2017 10:40 AM PSTFormatting of this note might be differe nt from the original. Myra Walden PA-C [address] [place], [place] [id number] FAX: PHYSICAL MEDICINE AND REHABILITATION H&P CHIEF [...] has no apparent deficits with short or manager terminal memory. He has appropriate fund of knowledge [...]
--- OUTSIDE RECORDS SUMMARY | ~2020-01-20 | XMS | Encounter Summary ---
Demographics + + + | Address | [address] | | | [place] [address] | + + + | Home Phone | | + + + | Preferred Language | Unknown | + + + | Marital Status | | + + + | Mormon Affiliation | Unknown | + + + | Race | Unknown | + + + | Ethnic Group | Unknown | + + + Author + + + | Author | [facility] | | | and [place] | + + + | Organization | [facility] | | | and [place] [...] Team Providers + +------+ + | Care Manager Fine Dining Name | Role | Phone | + [...] | [address] | [place] [address] | | | | | [place] [address] | | | | | | [phone] | | | +--------+ + + + [...] for comparison only - no result from [place]. | [facility] | + + + + +---------+ + + | Performing | Address | City/State/Zipcode | Phone Number | | Organization | | | | + +---------+ + + | [facility] | | | | + +---------+ + + documented in this encounter Visit Diagnoses Not on filedocumented in this encounter"
--- OUTSIDE RECORDS SUMMARY | ~2020-01-20 | XMS | Encounter Summary ---
Demographics + + + | Address | [address] | | | [place] [address] | + + + | Home Phone | | + + + | Preferred Language | Unknown | + + + | Marital Status | | + + + | Methodist Affiliation | Unknown | + + + | Race | Unknown | + + + | Ethnic Group | Unknown | + + + Author + + + | Author | [facility] | | | and [place] | + + + | Organization | [facility] | | | and [place] [...] Team Providers + +------+ + | Care Printing Bindery Assistant Name | Role | Phone | [...] | [address] | [place] [address] | | | | | [place] [address] | | | | | | [phone] | | | +--------+ + + + [...] + +--------+ + + + | MRI LUMBAR SPINE WO | Routin | 11/29/2017 | | Results for this | | CONTRAST | e | 8:30 AM | | procedure are in the | | | | PDT | | results section. | + +--------+ + + + documented in this encounter Results MRI Lumbar Spine wo Contrast (11/29/2017 8:30 AM PDT) + + | Specimen | + + | | + + + + + | Narrative | Performed At | + + + | External films for comparison only - no result from [place]. | [facility] | + + + + +---------+ + + | Performing | Address | City/State/Zipcode | Phone Number | | Organization | | | | + +---------+ + + | [facility] | | | | + +---------+ + + documented in this encounter Visit Diagnoses Not on filedocumented in this encounter"
--- OUTSIDE RECORDS SUMMARY | ~2020-01-20 | XMS | Encounter Summary ---
Demographics + + + | Address | [address] | | | [place] [address] | + + + | Home Phone | | + + + | Preferred Language | Unknown | + + + | Marital Status | | + + + | Nondenominational Affiliation | Unknown | + + + | Race | Unknown | + + + | Ethnic Group | Unknown | + + + Author + + + | Author | [facility] | | | and [place] | + + + | Organization | [facility] | | | and [place] | + [...] Team Providers + +------+ + | Care Pilot Supervisor Name | Role | Phone | + +------+ + | Hayden Mueller DO | PCP | | + +------+ + Reason for Visit + + + | Reason | Comments | + + + | MRI Recommendation | | + + + Encounter Details +--------+ + + + + | Date | Type | Department | Care Team | Description | +--------+ + + + + | 11/21/ | Telephone | [facility] | Win, | MRI Recommendation | | 2018 | | PHYSIATRY [address] | [address] | | | | | [address] | [address] | | | | | [place], [place] | [place] [address] | | | | | [address] | [phone] | | | | | [phone] | | | +--------+ + + + [...] filedocumented as of this encounter Visit Diagnoses + + | Diagnosis | + + | Cervical radiculopathy - right - Primary Brachial neuritis or radiculitis nos | + + | Chronic bilateral low back pain with bilateral sciatica | + + | Neck pain on right side Cervicalgia | + + documented in this encounter"
--- OUTSIDE RECORDS SUMMARY | ~2020-01-20 | XMS | Encounter Summary ---
Demographics + + + | Address | [address] | | | [place] [address] | + + + | Home Phone | | + + + | Preferred Language | Unknown | + + + | Marital Status | | + + + | Buddhist Affiliation | Unknown | + + + | Race | White | + + + | Ethnic Group | Not or | + + + Author + + + | Author | [facility] | + + + | Organization | [facility] | + + + | Address | Unknown | + + + | Phone | Unavailable | + + + Support + + +---------+ + | Name | Relationship | Address | Phone | + + +---------+ + | Ruthann Crook | ECON | Unknown | | + + +---------+ + Care Team Providers + +------+ + | Care Dielectric Testing Machine Operator Name | Role | Phone | + +------+ + | Hayden Mueller DO | PCP | | + +------+ + Reason for Referral Consultation (Routine) +--------+--------+ + + + + | Status | Reason | Specialty | Diagnoses / | Referred By | Referred To | | | | | Procedures | Contact | Contact | +--------+--------+ + + + + | Closed | | Interventiona | Diagnoses | [facility] | [place], | | | | l Radiology | HHT | [address] | MD Carlos | | | | | (hereditary | Pavilion | [address] | | | | | hemorrhagic | [address] | [address] | | | | | telangiectas | Physician's | [place], | | | | | ia) (HCC) | Pavilion, | [place] | | | | | Procedures | 2nd floor | [address] | | | | | CONSULT TO | [place], [place] | Phone: | | | | | INTERVENTION | [address] | [phone] | | | | | AL RADIOLOGY | Phone: | Fax: | | | | | PROCEDURE | [phone] | [phone] | | | | | UNIT | Fax: | | | | | | | [phone] | | +--------+--------+ + + + + Diagnostic Testing (Routine) +--------+--------+ + + + + | Status | Reason | Specialty | Diagnoses / | Referred By | Referred To | | | | | Procedures | Contact | Contact | +--------+--------+ + + + + | Closed | | Radiology | Diagnoses | [place], | [facility] | | | | | HHT | MD Carlos | [address] | | | | | (hereditary | [address] | [address] | | | | | hemorrhagic | [address] | [place] | | | | | kristal | [place] | Research | | | | | ia) ([facility]) | [place], [place] | [place] | | | | | Procedures | [address] | [place], [place] | | | | | MRI BRAIN | Phone: | [address] | | | | | WWO CONTRAST | [phone] | Phone: | | | | | | Fax: | [phone] | | | | | | [phone] | Fax: | | | | | | | [phone] | +--------+--------+ + + + + Diagnostic Testing (Routine) +--------+--------+ + + + + | Status | Reason | Specialty | Diagnoses / | Referred By | Referred To | | | | | Procedures | Contact | Contact | +--------+--------+ + + + + | Closed | | Cardiology | Diagnoses | [place], | Car Echo | | | | | HHT | MD Carlos | [facility] [address] | | | | | (hereditary | [address] | [address] | | | | | hemorrhagic | [address] | [address] | | | | | telangiectas | Rd | [place] | | | | | ia) ([facility]) | [place], [place] | Building, 2nd | | | | | Procedures | [address] | floor | | | | | TRANSTHORACI | Phone: | [place], [place] | | | | | C | [phone] | [address] | | | | | ECHOCARDIOGR | Fax: | Phone: | | | | | AM, ADULT | [phone] | [phone] | +--------+--------+ + + + + Reason for Visit + + + | Reason | Comments | + + + | HHT - Hereditary | Patient desires HHT evaluation and screening - new patient | | Hemorrhagic | | | Telangiectasia | | + + + Encounter Details +--------+ + + + + | Date | Type | Department | Care Team | Description | +--------+ + + + + | 04/03/ | Special Education Aide | Interventional | Carlos Daniel MD | HHT (hereditary | | 2012 | | [facility] at [facility] | [address] | hemorrhagic | | | | [address] | [address] | telangiectasia) | | | | Loop Physician's | [place], [place] | (HCC) (Primary Dx) | | | | Pavilion, 2nd floor | [address] | | | | | [place], [place] | [phone] | | | | | [address] | | | | | | [phone] | | | +--------+ + + + [...] + documented in this encounter Results MRI BRAIN WWO CONTRAST (06/12/2013 1:04 PM PDT) + + + + + + | Component | Value | Ref Range | Performed | Pathologist | | | | | At | Signature | + + + + + + | MR BRAIN | MRI BRAIN WITH AND | | | | | WWO | WITHOUT CONTRAST, MRA | | | | | CONTRAST | BRAIN WITHOUT | | | | [...] | | + +---------+ + + | [facility] DEPARTMENT OF | | | | | RADIOLOGY | | | | + +---------+ + + TRANSTHORACIC ECHOCARDIOGRAM, ADULT (06/12/2013 12:00 AM PDT) [...]
--- OUTSIDE RECORDS SUMMARY | ~2020-01-20 | XMS | Encounter Summary ---
Demographics + + + | Address | [address] | | | [place] [address] | + + + | Home Phone | | + + + | Preferred Language | Unknown | + + + | Marital Status | | + + + | Mosque Affiliation | Unknown | + + + | Race | Unknown | + + + | Ethnic Group | Unknown | + + + Author + + + | Author | [facility] | | | and [place] | + + + | Organization | [facility] | | | and [place] | [...] Team Providers + +------+ + | Care Mold Yard Supervisor Name | Role | Phone | [...] | [address] | [place] [address] | | | | | [place] [address] | | | | | | [phone] | | | +--------+ + + + [...]
--- OUTSIDE RECORDS SUMMARY | ~2020-01-20 | XMS | Encounter Summary ---
Demographics + + + | Address | [address] | | | [place] [address] | + + + | Home Phone | | + + + | Preferred Language | Unknown | + + + | Marital Status | | + + + | Samaritan Affiliation | Unknown | + + + | Race | White | + + + | Ethnic Group | Not or | + + + Author + + + | Author | [facility] | + + + | Organization | [facility] | + + + | Address | Unknown | + + + | Phone | Unavailable | + + + Support + + +---------+ + | Name | Relationship | Address | Phone | + + +---------+ + | Ruthann Crook | ECON | Unknown | | + + +---------+ + Care Team Providers + +------+ + | Care Roof Promenade Tile Setter Name | Role | Phone | + [...] | | | | Loop Physician's | [place], [place] | | | | | [address], 2nd floor | [address] | | | | | [place], [place] | [phone] | | | | | [address] | | | | | | [phone] | | | +--------+ + + + [...] | + + + + + | [facility] DEPT OF | [address] | [place], [place] | | | CARDIOLOGY | [address] | [address] | | + + + + + [...]
--- OUTSIDE RECORDS SUMMARY | ~2020-01-20 | XMS | Encounter Summary ---
Demographics + + + | Address | [address] | | | [place] [address] | + + + | Home Phone | | + + + | Preferred Language | Unknown | + + + | Marital Status | | + + + | Shinto Affiliation | Unknown | + + + | Race | Unknown | + + + | Ethnic Group | Unknown | + + + Author + + + | Author | [facility] | | | and [place] | + + + | Organization | [facility] | | | and [...] Team Providers + +------+ + | Care Precision Devices Inspector/Tester Name | Role | Phone | + +------+ + | Hayden Mueller DO | PCP | | + +------+ + Reason for Referral Evaluate & Treat (Routine) +--------+ + + + + + | Status | Reason | Specialty | Diagnoses / | Referred By | Referred To | | | | | Procedures | Contact | Contact | +--------+ + + + + + | Closed | Specialty | Physical | Diagnoses | | [facility] | | | Services | Therapy | Cervical | Win, | [facility] | | | Required | | radiculopath | Myra | [facility] | | | | | y Chronic | PA-C [address] | [address] | | | | | bilateral | [address], | [address] | | | | | low back | [address] | [place], [place] | | | | | pain with | [place] | [address] | | | | | bilateral | [address] | Phone: | | | | | sciatica | Phone: | [phone] | | | | | Neck pain on | [phone] | Fax: | | | | | right side | Fax: | [phone] | | | | | Procedures | [phone] | | | | | | HIM 4/4 | | | +--------+ + + + + + Reason for Visit + + + | Reason | Comments | + + + | Results, Imaging | | + + + Encounter Details +--------+ + + + + | Date | Type | Department | Care Team | Description | +--------+ + + + + | 12/15/ | Telephone | [facility] | Win, | Results, Imaging | | 2017 | | [address]SIATRY [address] | [place] [address] | | | | | [address] | [address] | | | | | [place], [place] | [place] [address] | | | | | [address] | [phone] | | | | | [phone] | | | +--------+ + + + [...] of this encounter Plan of Treatment + + +--------+ + + | Name | Type | Priori | Associated Diagnoses | Order Schedule | | | | ty | | | + + +--------+ + + | * [facility] | Outpatient | Routin | Cervical | Ordered: 12/20/2017 | | Therapy - AMB | Referral | e | radiculopathy - | | | Referral | | | right Chronic | | | | | | bilateral low back | | | | | | pain with bilateral | | | | | | sciatica Neck pain | | | | | | on right side | | + + +--------+ + + documented as of this encounter [...]
--- OUTSIDE RECORDS SUMMARY | ~2020-01-20 | XMS | Encounter Summary ---
Demographics + + + | Address | [address] | | | [place] [address] | + + + | Home Phone | | + + + | Preferred Language | Unknown | + + + | Marital Status | | + + + | Congregational Affiliation | Unknown | + + + | Race | Unknown | + + + | Ethnic Group | Unknown | + + + Author + + + | Author | [facility] | | | and [place] | + + + | Organization | [facility] | | | and [place] [...] Team Providers + +------+ + | Care Grounds Keeper Name | Role | Phone | + +------+ + | Hayden Mueller DO | PCP | | + +------+ + Reason for Visit + + + | Reason | Comments | + + + | Medication Refill | | + + + | Medication Refill | | + + + Encounter Details +--------+--------+ + + + | Date | Type | Department | Care Team | Description | +--------+--------+ + + + | 12/02/ | Refill | [facility] [place] | Danna Miranday, | Medication Refill; | | 2019 | | [address] | PA-C [address] | Medication Refill | | | | [address] | [address] [place] | | | | | [place], [place] | [place] [address] | | | | | [address] | [phone] | | | | | [phone] | | | +--------+--------+ + + + [...]
--- OUTSIDE RECORDS SUMMARY | ~2020-01-20 | XMS | Clinical Summary ---
Demographics + + + | Address | [address] | | | [place] [address] | + + + | Home Phone | | + + + | Preferred Language | Unknown | + + + | Marital Status | | + + + | Yarsanism Affiliation | Unknown | + + + | Race | Unknown | + + + | Ethnic Group | Unknown | + + + Author + + + | Author | [facility] | | | and [place] | + + + | Organization | [facility] | | | and [place] [...] Team Providers + +------+ + | Care Delivery Engineer Name | Role | Phone | + +------+ + | Hayden Mueller DO | PCP | | + +------+ + Allergies + + + +--------+ + | Active Allergy | Reactions | Severity | Noted | Comments | | | | | Date | | + + + +--------+ + | Ciprofloxacin | Other (See Comments) | | | Tendon pain | + + + +--------+ + | Penicillins | Rash | Low | | | + + + +--------+ + | Sulfa Antibiotics | Anaphylaxis, | High | | | | | Itching, Rash | | | | + + + +--------+ + | Sulfamethoxazole-Tri | Anaphylaxis | High | | | | methoprim | | | | | + + + +--------+ + Medications + + + +---------+------+------+-------+ | Medication | Sig | Dispensed | Refills | Star | End | Statu | | | | | | t | Date | s | | | | | | Date | | | + + + +---------+------+------+-------+ | amLODIPine | Take 1 tablet by | | 0 | | | Activ | | (NORVASC) 10 MG | mouth Daily. | | | | | e | | tablet | | | | | | | + + + +---------+------+------+-------+ | triamcinolone | Inject 1.5 mLs as | | 0 | | | Activ | | acetonide (KENALOG) | directed Daily. | | | | | e | | 40 mg/mL injection | | | | | | | + + + +---------+------+------+-------+ | lisinopril | Take 1 tablet by | | 0 | | | Activ | | (PRINIVIL,ZESTRIL) | mouth 2 times daily. | | | | | e | | 40 MG tablet | | | | | | | + + + +---------+------+------+-------+ | metFORMIN | Take 1 tablet by | | 0 | | | Activ | | (GLUCOPHAGE-XR) 500 | mouth 2 times daily. | | | | | e | | mg 24 hr tablet | | | | | | | + + + +---------+------+------+-------+ | minocycline | Take 1 capsule by | | 0 | | | Activ | | (MINOCIN,DYNACIN) | mouth Daily. | | | | | e | | 100 MG capsule | | | | | | | + + + +---------+------+------+-------+ | omeprazole | Take 1 capsule by | | 0 | | | Activ | | (PRILOSEC) 20 mg | mouth Daily. | | | | | e | | capsule | | | | | | | + + + +---------+------+------+-------+ | albuterol | Inhale 2 puffs into | | 0 | | | Activ | | (PROVENTIL HFA) 90 | the lungs 4 times | | | | | e | | mcg/puff inhaler | daily. | | | | | | + + + +---------+------+------+-------+ | piroxicam | Take 20 mg by mouth | | 0 | | | Activ | | (FELDENE) 20 MG | Daily. | | | | | e | | capsule | | | | | | | + + + +---------+------+------+-------+ | tamsulosin | Take 0.4 mg by mouth | | 0 | | | Activ | | (FLOMAX) 0.4 mg CAPS | 2 times daily. | | | | | e | + + + +---------+------+------+-------+ | finasteride | Take 5 mg by mouth | | 0 | | | Activ | | (PROSCAR) 5 mg | Daily. 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 | | | 18 | | | | | get home from | | | | | | | | hospital | | | | | | + + + +---------+------+------+-------+ | gabapentin | TAKE ONE CAPSULE BY | 120 | 2 | / | | Activ | | (NEURONTIN) 300 mg | MOUTH THREE TIMES A | capsule | | 10/08 | | e | | capsule | DAY | | | 19 | | | + + + +---------+------+------+-------+ Active Problems + + + | Problem | Noted Date | + + + | Cervical radiculopathy - right | 11/10/2017 | + + + | Neck pain on right side | 11/10/2017 | + + + | Chronic bilateral low back pain with bilateral sciatica | 11/10/2017 | + + + Encounters +--------+--------+ + + + | Date | Type | Specialty | Care Team | Description | +--------+--------+ + + + | 12/02/ | Refill | Physical Medicine | Misha Miranda, | Medication Refill; | | 2020 | | and Rehabilitation | [place] | Medication Refill | +--------+--------+ + + + from Last 3 Months Family History + + +------+ + | Medical History | Relation | Name | Comments | + + +------+ + | High blood pressure | Father | | | + + +------+ + | Other (see comment) | Father | | Prostate surgery | + + +------+ + | Other cancer | Father | | Bladder | + + +------+ + | No known problems | Maternal | | | | | Grandfath | | | | | er | | | + + +------+ + | No known problems | Maternal | | | | | Grandmoth | | | | | er | | | + + +------+ + | Diabetes | Mother | | | + + +------+ + | Arthritis | Other | | | + + +------+ + | Diabetes | Other | | | + + +------+ + | Gout | Other | | | + + +------+ + | Heart disease | Other | | | + + +------+ + | No known problems | Paternal | | | | | Grandfath | | | | | er | | | + + +------+ + | No known problems | Paternal | | | | | Grandmoth | | | | | er | | | + + +------+ + + +------+--------+ + | Relation | Name | Status | Comments | + +------+--------+ + | Father | | Alive | | + +------+--------+ + | Maternal Grandfather | | | | + +------+--------+ + | Maternal Grandmother | | | | + +------+--------+ + | Mother | | Alive | | + +------+--------+ + | Other | | | | + +------+--------+ + | Paternal Grandfather | | | | + +------+--------+ + | Paternal Grandmother | | | | + +------+--------+ + Social History + +-------+ +--------+------+ | [...] | + + + + + | Hepatitis C | | | | | Screening | 4 | | | + + + + + | Colorectal Cancer | | | | | Screening | 4 | | | | (Colonoscopy) | | | | + + + + + | Vaccine: Zoster (1 | | | | | of 2) | 4 | | | + + + + + | Vaccine: Influenza | | 09/15/2009 | | | (Season Ended) | 0 | | | + + + + + | Vaccine: | | 02/11/2012 | | | Dtap/Tdap/Td (2 - | 2 | | | | Td) | | | | + + + + + Results Not on filefrom Last 3 Months Insurance +-------+--------+ +--------+-------+---------+--------+ | Payer | Benefi | Subscriber | Effect | Phone | Address | Type | | | t Plan | ID | [id number] | | | | | | / | | Dates | | | | | | Group | | | | | | +-------+--------+ +--------+-------+---------+--------+ | [employer] | [employer] | [id number] | 01/18/20 | | | Indemn | | | INDEMN | | 11-Pre | | | ity | | | ITY | | sent | | | | +-------+--------+ +--------+-------+---------+--------+ + +--------+ +--------+ + + | Guarantor Name | Accoun | Relation to | Date | Phone | Billing Address | | | t Type | Patient | of | | | | | | | | | | + +--------+ +--------+ + + | Edgard Crook | Person | Self [birth year] | [address] | | [place] | al/[place] | | 1965 | [phone] | [place] | | | [place] | | | 0 (Home) | [address] | + +--------+ +--------+ + + Advance Directives + + + + + | Type | Date Recorded | Patient | Explanation | | | | Software Asset Management Analyst | | + + + + + | Power of | | | | | Bus Matron | | | | + + + + + | Advance | | | | | Directive | | | | + + + + +
--- OUTSIDE RECORDS SUMMARY | ~2020-01-20 | XMS | Encounter Summary ---
Demographics + + + | Address | [address] | | | [place] [address] | + + + | Home Phone [...] + + + | Author | [facility] | + + + | Organization | [facility] | + + + | Address | Unknown | + + + | Phone | Unavailable | + + + Support + + +---------+ + | Name | Relationship | Address | Phone | + + +---------+ + | Ruthann Crook | ECON | Unknown | | + + +---------+ + Care Team Providers + +------+ + | Care Tavern Car Attendant Name | Role | Phone | + +------+ + | Hayden Mueller DO | PCP | | + +------+ + Reason for Visit + + + | Reason | Comments | + + + | HHT - Hereditary | screening visit | | Hemorrhagic | | | Telangiectasia | | + + + Consultation (Routine) +--------+--------+ + + + + | Status | Reason | Specialty | Diagnoses / | Referred By | Referred To | | | | | Procedures | Contact | Contact | +--------+--------+ + + + + | Closed | | Interventiona | Diagnoses | [facility] | Fredy, | | | | l Radiology | HHT | [address] | MD Carlos | | | | | (hereditary | Pavilion | [address] | | | | | hemorrhagic | Loop | [address] [place] | | | | | telangiectas | Physician's | Rd [place], | | | | | ia) (HCC) | Pavilion, | [place] | | | | | Procedures | 2nd floor | [address] | | | | | CONSULT TO | [place], [place] | Phone: | | | | | INTERVENTION | [address] | [phone] | | | | | AL RADIOLOGY | Phone: | Fax: | | | | | PROCEDURE | [phone] | [phone] | | | | | UNIT | Fax: | | | | | | | [phone] | | +--------+--------+ + + + + Encounter Details +--------+---------+ + + + | Date | Type | Department | Care Team | Description | +--------+---------+ + + + | 06/12/ | Office | Interventional | Carlos Daniel MD | Hereditary | | 2013 | Visit | Radiology at [facility] | [address] | hemorrhagic | | | | [address] | [address] | telangiectasia (HCC) | | | | Loop Physician's | [place], [place] | (Primary Dx); | | | | Pavilion, 2nd floor | [address] | Epistaxis; Family | | | | [place], [place] | [phone] | history of genetic | | | | [address] | | disorder; | | | | [phone] | | Hypertension | +--------+---------+ + + + Social History [...] in this encounter Patient Instructions Patient Instructions Carlos Daniel MD - 06/12/2013 3:31 PM [facility] Drs. Daniel & Arnold HHT Evaluation and Recommendations Thank you for visiting the HHT Center of Excellence at the [facility]. Your HHT status, HHT comp lications and recommendations for management of each problem are listed below. If you or you r primary physician have any questions, please contact us. Your diagnosis of HHT is: Definite. Your HHT organ specific evaluation and recommendations are as follows: Nosebleeds (epistaxis) Avoid blood thinners or non-steroidal anti-inflammatory medicines like aspirin and ibupro fen because they can worsen bleeding tendencies. Tylenol, Bextra, and Celebrex are generall y okay. Avoid injury to the nose such as blowing your nose strongly or picking. Avoid dry air. Use a saline gel or spray in the nasal passages 3 to 4 times each day. Moisten hard crusts in the nose with saline sprays or drops. If you have high blood pressure, blood pressure management is very important. For immediate control of bleeding, sit up and apply pressure to your nose with your finge rs; putting a vaseline-coated cotton ball into your nose may also help. If bleeding does no t stop or is severe, call 911 or go to an emergency room immediately. You should consider an evaluation by Dr. Fallon, T ENT specialist You should follow-up with Dr. Fallon Lung or pulmonary arteriovenous malformations (PAVM) and fistula (PAVF) Your screening tests suggest that you do not have a clinically significant PAVM/PAVF. You should return to our Center every 3 years for a bubble echo to screen for the develop ment of new PAVM/PAVF Brain or cerebral vascular malformations (CVM) Your screening tests suggest that you do not have a clinically significant CVM. Based on current understanding of CVM in people with HHT, no rescreening for CVM is recom mended at this time. Gastrointestinal telangiectasia and arteriovenous malformations Report any of the following symptoms to your doctor as soon as possible: vomiting blood, passage of bright red or dark black bowel movements, worsening shortness of breath or fatigu e, pale skin. Liver (hepatic) arteriovenous malformations Report any of the following symptoms to your doctor as soon as possible: pain in the uppe r right part of your abdomen, worsening shortness of breath or fatigue, jaundice (yellowing of the skin). Based on your children's Family Hx of HHT and nosebleeds, they both should be screened for HHT with brain MRI and bubble echo; their children should be tested for the known family HHT mutation, ideally via a Genetic Counselor.Electronically signed by Carlos Daniel MD at 3:43 PM PDT documented in this encounter Progress Notes Carlos Daniel MD - 06/12/2013 3:15 PM PDT [facility], Hereditary Hemorrhagic Telangiectasia Center of Excellence Clinic Note Edgard Crook ([facility] ), is a 48 y.o. (06/12/2013) man from [place], [place]. This patient is self-referred for evaluation of HHT and its possible complications. INFORMANT: I interviewed and examined this patient, in the presence of his spouse. The patient was an excellent historian. I reviewed with the patient the Patient Health History that they completed and asked that r he document be entered into the patient's [facility] medical record. CHIEF COMPLIANT: Concern over HHT. HISTORY OF PRESENT ILLNESS: The patient has never been evaluated at an HHT Center of Excellence. Previous evaluation: Brain MRI: no Contrast bubble echo: no Chest CT scan: no Doppler US of Liver: no Abdominal CT scan: no Genetic testing: No. Family mutation is known. Epistaxis: The patient noted the onset of epistaxis as a child. Currently, on average, nosebleeds occu r approx weekly. The patient currently does not have anemia. The patient has not had anemia in the past. No iron therapy of any kind currently or in the past. The patient has never required a blood transfusion. The patient has not used saline nasal spray on a regular basis. Patient past treatments for epistaxis: Nasal Packing: No Cautery: Yes, twice. Last many years ago. Laser: No Septal Dermoplasty: No Pulmonary Arteriovenous Malformation or Fistula (PAVM/PAVF) The patient has never been evaluated nor diagnosed with a PAVM in the past. Headaches: Yes, daily. Migraine Headaches: Yes, once Q 3 weeks. Hx of TIA: No Hx of Stroke: No Hx of other ischemic episode: No Hx of brain abscess: No Hx of unusual infections: No Hx of seizures: No Hx of pleural effusion: No Dyspnea: No Chest Pain/Pressure: No Lower Extremity Edema: No Hx CXR: No Hx Chest CT: No Hx pulmonary angiogram: No Embolization/Other therapy: No Cranial Arteriovenous Malformation (CAVM) Headaches: Yes, see above. Hx of cranial MRI: No Seizures: No Hx cerebral angiogram: No Therapy: No GI/Liver Arteriovenous Malformation (HAVM) Hematemesis: No Melena: No Hematochezia: No Chronic Abdominal pain: Yes, with BM, Liver abnormalities: No Colonoscopy: No EGD: No Therapy: No Cutaneous Telangiectasia Locations include lips. PAST MEDICAL HISTORY Allergies Allergen Reactions Penicillins Unknown Sulfacetamide Itching Current Outpatient Prescriptions Medication lisinopril 40 mg Oral tablet metoprolol succinate 50 mg Oral tablet extended release 24 hr Minocycline HCl 100 mg Oral tablet OMEPRAZOLE ORAL No current facility-administered medications for this visit. Past Medical History Diagnosis Date HTN (hypertension) Skin cancer 2009 face skin carcinoma removal Fatigue Nosebleed had it all his life/once a wk bleeding Sinus complaint gets allergy shots Mouth sores Asthma Indigestion Nausea Abdominal discomfort Abdominal pain Acid reflux Anxiety Depression Excessive urination at night Social History Marital Status: Spouse Name: N/A Years of Education: N/A Number of Children: 2 Occupational History security quard Social History Main Topics Smoking status: Never Smoker Smokeless tobacco: Alcohol Use: No Drug Use: No Sexually Active: Not on file Other Topics Concern None on file Social History Narrative None on file FAMILY HISTORY Known diagnosis another family member with: HHT: Yes Epistaxis: Yes PAVM: Yes CAVM: No HAVM: No GI Bleeding: No Family History Problem Relation HHT (hereditary hemorrhagic telangiectasia) Father + gnetic test GI bleeding Father HHT (hereditary hemorrhagic telangiectasia) Sister + gnetic test PAVF (pulmonary arteriovenous fistula) Sister Non-contributory Sister - gnetic test Family Status Relation Status Age Mother Alive breast cancer,HTN Father Alive prostate/bladder cancer,HTN, hht Sister Alive kidney problems Sister Alive HHT Maternal Grandmother Maternal Grandfather Paternal Grandmother Paternal Grandfather Son Alive occ epistaxis. children: man (2), Sussy (1) Daughter Alive epistaxis. children: Talon (6), Nemo (3), Denise(1) REVIEW OF SYSTEM: (see above as well as other sections of this encounter) No diabetes mellitus, renal insufficiency or other kidney problems. No history of hypothyroidism. No lethary, easy fatigibilty, cold intolerance, unintended weight loss or gain. No fevers, chills, sweats, night sweats No chest pain, palpitations, lower extermity edema. No history of DVT or PE. No other bleeding problems No lower extremity venous or other problems. The remainder of the patient's review of symptoms is negative. PHYSICAL EXAMINATION: General appearance: man, well developed, well hydrated and nourished, in no appar ent distress. Visit VS: BP 173/109 | Pulse 93 | Temp (Src) 36.7 C (98 F) (Oral) | RR 16 | Ht 1.753 m (5' 9") | Wt 83.553 kg (184 lb 3.2 oz) | SpO2 98% | BMI 27.19 kg/(m^2) Repeat BP by dc: 14 2102 SKIN: Warm, dry, good turgor. Mutiple telangiectasia: lips. HEENT: normocephalic, atraumatic. SUSANA. Sclera are anicteric and without injection. Bilateral anterior nasal septal mucosa with telangiecatasia and dried blood. NECK: Supple, FROM, no thyromegaly or masses. BACK: No spinal or CVA tenderness. CHEST: Symmetric to observation, auscultation, percussion. No dullness. Vesicular breath s ounds without rales or rhonchi. No bruits heard. CARDIAC: No JVD. Regular rate and rhythm. Normal S1, S2. No increased P2, murmur, rub or ga llop. ABDOMEN: Flat, non-distended. Bowel sounds normal without bruits heard. Soft, non-tender, w ithout palpable hepatosplenomegaly or masses. /RECTAL: Deferred. EXT: No clubbing, cyanosis, or edema. NEURO: Alert and oriented to person, place and date. Speech is fluent. Normal motor tone and bulk. Sensation intact to light touch in extremities. No tremor. Normal gait. DATA MRI examination of the brain to assess for presence of cranial AVM was ordered: MRI BRAIN WITH AND WITHOUT CONTRAST, MRA BRAIN WITHOUT CONTRAST.06/12/13 13:04:00. INDICATION: Rule out vascular malformation, HHt COMPARISON: None TECHNIQUE: Multiplanar, multi-sequence MR imaging of the entire brain was performed with and without intravenous gadolinium contrast. 3D Time of flight MRA of the brain was performed without contrast. 3D reconstructions were performed on an independent workstation. FINDINGS: Skull/Marrow/Soft tissues: Unremarkable Orbits/Optic nerves: Normal Sinuses: Clear Brain: No significant cerebral abnormality. Specifically, no evidence of hydrocephalus, neoplasm, infectious/inflammatory process, acute infarction, vascular lesion, or congenital abnormality. Enhancement: No abnormal enhancement. Additional Comments: None MRA Brain: Anterior Circulation:No hemodynamically significant stenosis or occlusion. No evidence for aneurysm. Posterior Circulation::No hemodynamically significant stenosis or occlusion. No evidence for aneurysm. Dominant left vertebral artery. IMPRESSION: 1. Normal MRI of the brain with and without contrast. No evidence for vascular malformation. 2. Normal MRA Brain. Attending Radiologists: LAURO PEREZ MD Echocardiogram with bubble contrast was ordered to assess for the presence of intra-pulmona ry shunting (a sensitive screening test for PAVM) and pulmonary hypertension. I personally reviewed the study. Final Impressions: 1. The LV systolic function is mildly decreased. 2. The left ventricular cavity size is normal. 3. Visually estimated left ventricular ejection fraction is 50 - 55%. 4. Impaired relaxation pattern of LV diastolic filling. 5. Left ventricular systolic thickening is normal in all segments. 6. Saline contrast study shows positive for a small late shunt, characteristic of a small intrapulmonary shunt. (I only saw 1, maybe 2 late bubbles on both rest and valsalva injecti ons) 7. Normal RV size, systolic function, and peak systolic pressure (28 mm Hg). 8. No prior studies. ASSESSMENT: 1. Hereditary Hemorrhagic Telangiectasia (HHT). Without a positive molecular genetic test result, the approach to the diagnosis of HHT is b ased on the [place] Clinical Diagnostic Criteria which assesses a patient for the presence o r absence of mucocutaneous telangiectasia, chronic epistaxis, visceral arteriovenous malform ation, family history of HHT. Based on this patient's findings to date, the diagnosis of HH T is: Definite (3 or more criteria) 2. Chronic epistaxis. 3. Mucocutaneous telangiectasia. 4. No cerebral vascular malformation (CVM) seen at this time. Based on the current unders tanding of HHT and CVM, this patient is at extremely low risk of developing a CVM during the patient's lifetime and therefore repeat screening for CAVM in the absence of any new sympto ms is not needed unless signs and symptoms warrant or new data becomes available. 5. Only a very small (grade I as best) intrapulmonary shunt on contrast bubble echocardiog marti seen at this time. Probability of clinically significant pulmonary arteriovenous malfor mation/fistula (PAVM/PAVF) at this time. 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 6. HTN. Chronic. On meds. Less than ideal control. Pt states DBP usually 95-105, so curre nt reading of 102 is nto of immediate concern. 7. Family members at risk for HHT and associated complications who have not yet been screen ed for HHT. RECOMMENDATIONS: * Regular nasal mucosa hydration therapy (twice a day) with saline spray ([place], [place], or s imilar preparation) or gel. * Referral to Dr. Lobito Fallon for further evaluation of chronic epistaxis. * Repeat screening for PAVM/PAVF with contrast bubble echocardiogram in 3 years or sooner if signs and symptoms warrant. * CBC and ferritin to evaluate for anemia. * All blood relatives at risk for HHT who have not yet been screened for HHT should be sc reened at an HHT Center of Excellence. Screening options include: * See PCP as soon as possilel for BP check and consideration for increased medical Rx. I had a long, detailed discussion with the patient about HHT, including, but not limited to , history of HHT, genetics, multi-system organ involvement, approaches to screening, therapy and follow-up, the need for potential long-term follow-up and need to screen blood relative s. I provided the patient with an educational handout prepared by me. Questions were nba dDiya Greater than 50% of my > 60 minute encounter with this patient was spent educating and coun seling the patient and his about HHT. documented in this enc ounter Plan of Treatment Not on filedocumented as of this encounter Visit Diagnoses + + | Diagnosis | + + | Hereditary hemorrhagic telangiectasia (HCC) - Primary Hereditary hemorrhagic | | telangiectasia | + + | Epistaxis | + + | Family history of genetic disorder Family history of other condition | + + | Hypertension Unspecified essential hypertension | + + documented in this encounter
--- OUTSIDE RECORDS SUMMARY | ~2020-01-20 | XMS | Encounter Summary ---
Demographics + + + | Address | [address] | | | [place] [address] | + + + | Home Phone | | + + + | Preferred Language | Unknown | + + + | Marital Status | | + + + | Uatsdin Affiliation | Unknown | + + + | Race | Unknown | + + + | Ethnic Group | Unknown | + + + Author + + + | Author | [facility] | | | and [place] | + + + | Organization | [facility] | | | and [...] Team Providers + +------+ + | Care Comfort Filler Name | Role | Phone | + +------+ + | Hayden Mueller DO | PCP | | + +------+ + Reason for Visit + + + | Reason | Comments | + + + | Medication Question | | + + + Encounter Details +--------+ + + + + | Date | Type | Department | Care Team | Description | +--------+ + + + + | 11/24/ | Telephone | [facility] [place] | Win, | Medication Question | | 2018 | | PHYSIATRY [address] | [address] | | | | | [address] | [address] | | | | | [place], [place] | [place] [address] | | | | | [address] | [phone] | | | | | [phone] | | | +--------+ + + + [...]
--- OUTSIDE RECORDS SUMMARY | ~2020-01-20 | XMS | Encounter Summary ---
Demographics + + + | Address | [address] | | | [place] [address] | + + + | Home Phone | | + + + | Preferred Language | Unknown | + + + | Marital Status | | + + + | Jehovah'S Witness Affiliation | Unknown | + + + | Race | Unknown | + + + | Ethnic Group | Unknown | + + + Author + + + | Author | [facility] | | | and [place] | + + + | Organization | [facility] | | | and [place] [...] Team Providers + +------+ + | Care Transmission Systems Operator Name | Role | Phone | [...] Description | +--------+--------+ + + + | 11/27/ | Refill | [facility] [place] | Win, | Medication Refill | | 2019 | | PHYSIATRY [address] | [address] | | | | | [address] | [address] | | | | | [place], [place] | [place] [address] | | | | | [address] | [phone] | | | | | [phone] | | | +--------+--------+ + + + [...]
--- OUTSIDE RECORDS SUMMARY | ~2020-01-20 | XMS | Encounter Summary ---
Demographics + + + | Address | [address] | | | [place] [address] | + + + | Home Phone | | + + + | Preferred Language | Unknown | + + + | Marital Status | | + + + | Temple Affiliation | Unknown | + + + | Race | Unknown | + + + | Ethnic Group | Unknown | + + + Author + + + | Author | [facility] | | | and [place] | + + + | Organization | [facility] | | | and [place] [...] Team Providers + +------+ + | Care Pocket Closer Name | Role | Phone | + [...] | [place], [place] | [place] [address] | | | | | [address] | [phone] | | | | | [phone] | | | +--------+--------+ + + + [...]
--- OUTSIDE RECORDS SUMMARY | ~2020-01-20 | XMS | Encounter Summary ---
Demographics + + + | Address | [address] | | | [place] [address] | + + + | Home Phone | | + + + | Preferred Language | Unknown | + + + | Marital Status | | + + + | Restorationist Affiliation | Unknown | + + + | Race | White | + + + | Ethnic Group | Not or | + + + Author + + + | Author | [facility] | + + + | Organization | [facility] | + + + | Address | Unknown | + + + | Phone | Unavailable | + + + Support + + +---------+ + | Name | Relationship | Address | Phone | + + +---------+ + | Ruthann Crook | ECON | Unknown | | + + +---------+ + Care Team Providers + +------+ + | Care Assistant Buyer Name | Role | Phone | + [...] Closed | | Radiology | Diagnoses | [place], | [facility] | | | | | HHT | MD Carlos | [address] | | | | | (hereditary | [address] | [address] | | | | | hemorrhagic | [address] | [address] | | | | | kristal | [place] | Research | | | | | ia) ([facility]) | [place], [place] | Center | | | | | Procedures | [address] | [place], [place] | | | | | MRI BRAIN | Phone: | [phone] | | | | | WWO CONTRAST | [phone] | Phone: | | | | | | Fax: | [phone] | | | | | | [phone] | Fax: | | | | | | | [phone] | +--------+--------+ + + + + Reason for Visit Diagnostic Testing (Routine) [...] | HHT | MD Carlos | [address] | | | | | (hereditary | [address] | [address] | | | | | hemorrhagic | [address] | [address] | | | | | kristal | [place] | Research | | | | | ia) ([facility]) | [place], [place] | [place] | | | | | Procedures | [address] | [place], [place] | | | | | MRI BRAIN | Phone: | [phone] | | | | | WWO CONTRAST | [phone] | Phone: | | | | | | Fax: | [phone] | | | | | | [phone] | Fax: | | | | | | | [phone] | +--------+--------+ + + + + Encounter Details +--------+ + + + + | Date | Type | Department | Care Team | Description | +--------+ + + + + | 06/12/ | Hospital | Diagnostic Imaging | | | | 2012 | Encounter | Services at [facility] | | | | | | [address] | | | | | | [address] [place] | | | | | | [facility] | | | | | | [place], [place] | | | | | | [address] | | | | | | [phone] | | | +--------+ + + + [...] + + documented as of this encounter Progress Notes Xena Caro RN - 06/12/2013 12:19 PM PDTMr. Armaan is here for an MRI scan. States has anu istory of claustrophobia. Laying on MRI table he realized his anxiety was too great. Request ed medication to help. No known allergy to anxiolytics. Spoke with radiologist, okay to give Ativan. 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 Scan has started without difficulty. Monitor as needed.Electronically sign ed by Xena Caro RN at 06/12/2013 12:24 PM PDTdocumented in this encounter Plan of Treatment Not on filedocumented as of this encounter Procedures + +--------+ + + + | Procedure Name | Priori | Date/Time | Associated Diagnosis | Comments | | | ty | | | | + +--------+ + + + | MRI BRAIN WWO | Routin | 06/12/2013 | HHT (hereditary | Results for this | | CONTRAST | e | 1:04 PM | hemorrhagic | procedure are in the | | | | PDT | telangiectasia) | results section. | | | | | (HCC) | | + +--------+ + + + | CREATININE, POC | Routin | 06/12/2013 | | Results for this | | | e | 11:09 AM | | procedure are in the [...] | | | + +---------+ + + ROUTINE CHEMISTRY TESTS (RADIOLOGY), POC (06/12/2013 11:09 AM PDT) + +---------+ + + + | Component | Value | Ref Range | Performed | Pathologist | | | | | At | Signature | + +---------+ + + + | CREATININE, | 1.5 (H) | 0.7 - 1.3 mg/dL | [facility] - | | | POC | | | [place] | | | | | | [facility] | | | | | | OF CARE | | | | | | TESTS | | + +---------+ + + + + + | Specimen | + + | | + + + + + + + | Performing | Address | City/State/Zipcode | Phone Number | | Organization | | | | + + + + + | [facility] | [address] | [place], [place] | | | [facility] | [address] | [address] | | | TESTS | | | | + + + + + documented in this encounter Visit Diagnoses + + | Diagnosis | + + | HHT (hereditary hemorrhagic telangiectasia) (HCC) Hereditary hemorrhagic | | telangiectasia | + + documented in this encounter Administered Medications + +---------+ +--------+------+------+ | Medication Order | MAR | Action | Dose | Rate | Site | | | Action | Date | | | | + +---------+ +--------+------+------+ | LORazepam (ATIVAN) injection 1 | New Bag | 06/12/20 | 0.5 mg | | | | mg 1 mg, intravenous, NEEDED, | | 13 12:15 | | | | | 2 doses, Starting Tue06/12/13 at | | PM PDT | | | | | 1214, Until Tue06/12/13 at 1215, | | | | | | | anxiety | | | | | | + +---------+ +--------+------+------+ +---------+ +------+---+---+ | New Bag | 06/12/20 | 1 mg | | | | | 13 12:00 | | | | | | PM PDT | | | | +---------+ +------+---+---+ +---+---+ | | | +---+---+ documented in this encounter"
--- OUTSIDE RECORDS SUMMARY | ~2020-01-20 | XMS | Encounter Summary ---
Demographics + + + | Address | [address] | | | [place] [address] | + + + | Home Phone | | + + + | Preferred Language | Unknown | + + + | Marital Status | | + + + | Confucianism Affiliation | Unknown | + + + | Race | White | + + + | Ethnic Group | Not or | + + + Author + + + | Author | [facility] | + + + | Organization | [facility] | + + + | Address | Unknown | + + + | Phone | Unavailable | + + + Support + + +---------+ + | Name | Relationship | Address | Phone | + + +---------+ + | Ruthann Crook | ECON | Unknown | | + + +---------+ + Care Team Providers + +------+ + | Care Coding Director Name | Role | Phone | + [...] Research | | | | | ia) ([facility]) | [place], [place] | Center | | | | | Procedures | [address] | [place], [place] | | | | | MRI BRAIN | Phone: | [address] | | | | | WWO CONTRAST | [phone] | Phone: | | | | | | Fax: | [phone] | | | | | | [phone] | Fax: | | | | | | | [phone] | +--------+--------+ + + + + Reason [...] Research | | | | | ia) ([facility]) | [place], [place] | [place] | | | | | Procedures | [address] | [place], [place] | | | | | MRI BRAIN | Phone: | [phone] | | | | | WWO CONTRAST | [phone] | Phone: | | | | | | Fax: | [phone] | | | | | | [phone] | Fax: | | | | | | | [phone] | +--------+--------+ + + + + Encounter Details +--------+ + + + + | Date | Type | Department | Care Team | Description | +--------+ + + + + | 06/12/ | Hospital | Diagnostic Imaging | | | | 2012 | Encounter | Services at [facility] | | | | | | [address] | | | | | | [address] | | | | | | [facility] | | | | | | [place], [place] | | | | | | [address] | | | | | | [phone] | | | +--------+ + + + [...] present at tableside, and 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 Scan has [...] (H) | 0.7 - 1.3 mg/dL | [facility] - | | | POC | [...] + + + | YAJAIRA DEWITT | [address] | [place], [place] | | | [facility] | [address] | [address] | | | TESTS | | | [...]
--- OUTSIDE RECORDS SUMMARY | ~2020-01-20 | XMS | Encounter Summary ---
Demographics + + + | Address | [address] | | | [place] [address] | + + + | Home Phone | | + + + | Preferred Language | Unknown | + + + | Marital Status | | + + + | Quaker Affiliation | Unknown | + + + | Race | Unknown | + + + | Ethnic Group | Unknown | + + + Author + + + | Author | [facility] | | | and [place] | + + + | Organization | [facility] | | | and [place] [...] Team Providers + +------+ + | Care Client Support Coordinator Name | Role | Phone | + +------+ + | Hayden Mueller DO | PCP | | + +------+ + Encounter Details +--------+ + + + + | Date | Type | Department | Care Team | Description | +--------+ + + + + | 11/07/ | Abstract | [facility] [place] | Win, | | | 2018 | | PHYSIATRY [address] | [place] [address] | | | | | [address] | [address] | | | | | [place] | [place] [address] | | | | | [address] | [phone] | | | | | [phone] | | | +--------+ + + + [...]
--- OUTSIDE RECORDS SUMMARY | ~2020-01-20 | XMS | Encounter Summary ---
Demographics + + + | Address | [address] | | | [place] [address] | + + + | Home Phone | | + + + | Preferred Language | Unknown | + + + | Marital Status | | + + + | Faith Affiliation | Unknown | + + + | Race | White | + + + | Ethnic Group | Not or | + + + Author + + + | Author | [facility] | + + + | Organization | [facility] | + + + | Address | Unknown | + + + | Phone | Unavailable | + + + Support + + +---------+ + | Name | Relationship | Address | Phone | + + +---------+ + | Ruthann Crook | ECON | Unknown | | + + +---------+ + Care Team Providers + +------+ + | Care Director Of Strategic Programs Name | Role | Phone | + [...] | | Procedures | 2nd floor | [address] | | | | | CONSULT TO | [place], [place] | Phone: | | | | | INTERVENTION | [address] | [phone] | | | | | AL RADIOLOGY | Phone: | Fax: | | | | | PROCEDURE | [phone] | [phone] | | | | | UNIT | Fax: | | | | | | | [phone] | | +--------+--------+ + + + + [...] | hemorrhagic | [address] | [address] | | | | | kristal | Corby | Research | | | | | ia) ([facility]) | [place], [place] | [place] | | | | | Procedures | [address] | [place], [place] | | | | | MRI BRAIN | Phone: | [address] | | | | | WWO CONTRAST | [phone] | Phone: | | | | | | Fax: | [phone] | | | | | | [phone] | Fax: | | | | | | | [phone] | +--------+--------+ + + + + Diagnostic [...] | | HHT | MD Carlos | [facility] [address] | | | | | (hereditary | [address] | [address] | | | | | hemorrhagic | Behzad Allison | [address] | | | | | telangiectas | Rd | [place] | | | | | ia) ([facility]) | [place], [place] | Building, 2nd | | | | | Procedures | [address] | floor | | | | | TRANSTHORACI | Phone: | [place], [place] | | | | | C | [phone] | [address] | | | | | ECHOCARDIOGR | Fax: | Phone: | | | | | AM, ADULT | [phone] | [phone] | +--------+--------+ + + + + Reason [...] + + + + | 04/03/ | [address] Office Assistant | Interventional | Carlos Daniel MD | HHT (hereditary | | 2012 | | Radiology at [facility] | [address] | hemorrhagic | | | | [address] | [facility] [address] | telangiectasia) | | | | Loop Physician's | [place], [place] | (HCC) (Primary Dx) | | | | Pavilion, 2nd floor | [address] | | | | | [place], [place] | [phone] | | | | | [address] | | | | | | [phone] | | | +--------+ + + + [...] | | + +---------+ + + | [facility] DEPARTMENT OF | | | | | [...]
--- OUTSIDE RECORDS SUMMARY | ~2020-01-20 | XMS | Encounter Summary ---
Demographics + + + | Address | [address] | | | [place] [address] | + + + | Home Phone | | + + + | Preferred Language | Unknown | + + + | Marital Status | | + + + | Advent Affiliation | Unknown | + + + | Race | Unknown | + + + | Ethnic Group | Unknown | + + + Author + + + | Author | [facility] | | | and [place] | + + + | Organization | [facility] | | | and [...] Team Providers + +------+ + | Care Bus Analyst Name | Role | Phone | + [...] | +--------+ + + + + | 12/06/ | Telephone | [facility] [place] | Win, | Results, Imaging | | 2018 | | PHYSIATRY [address] | [place] [address] | | | | | [address] | [address] | | | | | [place], [place] | [place] [address] | | | | | [address] | [phone] | | | | | [phone] | | | +--------+ + + + [...]
--- OUTSIDE RECORDS SUMMARY | ~2020-01-20 | XMS | Encounter Summary ---
Demographics + + + | Address | [address] | | | [place] [address] | + + + | Home Phone | | + + + | Preferred Language | Unknown | + + + | Marital Status | | + + + | Anglican Affiliation | Unknown | + + + [...] Team Providers + +------+ + | Care Clinical Rehab Liaison Name | Role | Phone | + [...] | | telangiectas | Physician's | Rd [place], | | | | | ia) (HCC) | Pavilion, | [place] | | | | | Procedures | 2nd floor | [address] | | | | | CONSULT TO | [place], [place] | Phone: | | | | | INTERVENTION | [address] | [phone] | | | | | AL RADIOLOGY | Phone: | Fax: | | | | | PROCEDURE | [phone] | [phone] | | | | | UNIT | Fax: | | | | | | | [phone] | | +--------+--------+ + + + + [...] | | | [address] | [address] | telangiectasia (HCC) | | | | Loop Physician's | [place], [place] | (Primary Dx); | | | | Pavilion, 2nd floor | [address] | Epistaxis; Family | | | | [place], [place] | [phone] | history of genetic | | | | [address] | | disorder; | | | | [phone] | | Hypertension | +--------+---------+ + + [...] Carlos Daniel MD - 06/12/2013 3:31 PM [facility] HHT [facility] of Excellence Drs. Daniel & Arnold HHT Evaluation and Recommendations Thank you for visiting the HHT Center of Excellence at the [facility]. Your HHT status, HHT comp lications and [...] Daniel MD - 06/12/2013 3:15 PM PDT [facility], Hereditary Hemorrhagic Telangiectasia Center of Excellence Clinic Note Edgard Crook ([facility] ), is a 48 y.o. (06/12/2013) man from [place], [place]. This patient is self-referred for evaluation of HHT and its possible complications. INFORMANT: I interviewed and examined this patient, in the presence of his spouse. The patient was an excellent historian. I reviewed with the patient the Patient Health History that they completed and asked that r he document be entered into the patient's [facility] medical record. CHIEF COMPLIANT: Concern over HHT. [...] | BMI 27.19 kg/(m^2) Repeat BP by mi: 14 2102 SKIN: Warm, dry, good turgor. [...] therapy (twice a day) with saline spray (Holabird, Rankin, or s imilar preparation) or gel. * [...]
--- OUTSIDE RECORDS SUMMARY | ~2020-01-20 | XMS | Encounter Summary ---
Demographics + + + | Address | [address] | | | [place] [address] | + + + | Home Phone [...] + + + | Author | [facility] | + + + | Organization | [facility] | + + + | Address | Unknown | + + + | Phone | Unavailable | + + + Support + + +---------+ + | Name | Relationship | Address | Phone | + + +---------+ + | Ruthann Crook | ECON | Unknown | | + + +---------+ + Care Team Providers + +------+ + | Care Music Box Mechanic Name | Role | Phone | [...] | | | | | hemorrhagic | [address] | | | | | | kristal | Behz[address] Cooper | | | | | | ia ([facility]) | Rd | | | | | | Procedures | [place], [place] | | | | | | TRANSTHORACI | [address] | | | | | | C | Phone: | | | | | | ECHOCARDIOGR | [phone] | | | | | | AM, ADULT | Fax: | | | | | | | [phone] | | +--------+--------+ + + + + [...] + + + + | 11/03/ | [facility] | Interventional | Carlos Daniel MD | Hereditary | | 2017 | | Radiology at [facility] | [address] | hemorrhagic | | | | [address] | [address] | telangiectasia (HCC) | | | | Loop Physician's | [place], [place] | (Primary Dx) | | | | Pavilion, 2nd floor | [address] | | | | | [place], [place] | [phone] | | | | | [address] | | | | | | [phone] | | | +--------+ + + + [...]
--- OUTSIDE RECORDS SUMMARY | ~2020-01-20 | XMS | Encounter Summary ---
Demographics + + + | Address | [address] | | | [place] [address] | + + + | Home Phone | | + + + | Preferred Language | Unknown | + + + | Marital Status | | + + + | Congregational Affiliation | Unknown | + + + | Race | Unknown | + + + | Ethnic Group | Unknown | + + + Author + + + | Author | [facility] | | | and [place] | + + + | Organization | [facility] | | | and [place] [...] Team Providers + +------+ + | Care Melangeur Operator Name | Role | Phone | [...] | [place], [place] | [place] [address] | | | | | [address] | [phone] | | | | | [phone] | | | +--------+--------+ + + + [...]
--- OUTSIDE RECORDS SUMMARY | ~2020-01-20 | XMS | Clinical Summary ---
Demographics + + + | Address | [address] | | | [place] [address] | + + + | Home Phone | | + + + | Preferred Language | Unknown | + + + | Marital Status | | + + + | Adventism Affiliation | Unknown | + + + | Race | Unknown | + + + | Ethnic Group | Unknown | + + + Author + + + | Author | [facility] | | | and [place] | + + + | Organization | [facility] | | | and [place] [...] Team Providers + +------+ + | Care Radiological Metallurgist Name | Role | Phone | + [...] | e | | | must have auto driver to | | | 18 | [...] +-------+--------+ +--------+-------+---------+--------+ | UMR | UMR | [id number] | 01/18/20 | | | Indemn | [...] [place] | | | 0 (Home) | [address] | + +--------+ +--------+ + + Advance Directives + + + + + | Type | Date Recorded | Patient | Explanation | | | | Business Services Intern | | + + + + + | Power of | | | | | Library Cataloging Technician | | | | + + + + + | Advance | | | | | Directive | | | | + + + + +
--- OUTSIDE RECORDS SUMMARY | ~2020-01-20 | XMS | Encounter Summary ---
Demographics + + + | Address | [address] | | | [place] [address] | + + + | Home Phone | | + + + | Preferred Language | Unknown | + + + | Marital Status | | + + + | Quaker Affiliation | Unknown | + + + | Race | Unknown | + + + | Ethnic Group | Unknown | + + + Author + + + | Author | [facility] | | | and [place] | + + + | Organization | [facility] | | | and [place] [...] Providers + +------+ + | Care Sales Ledger Administrator Name | Role | Phone | [...] | [address] | [place] [address] | | | | | [place] [address] | | | | | | [phone] | | | +--------+ + + + [...] for comparison only - no result from [place]. | [facility] | + + + + +---------+ + + | Performing | Address | City/State/Zipcode | Phone Number | | Organization | | | | + +---------+ + + | [facility] | | | | + +---------+ + + documented in this encounter Visit Diagnoses Not on filedocumented in this encounter"
--- OUTSIDE RECORDS SUMMARY | ~2020-01-20 | XMS | Encounter Summary ---
Demographics + + + | Address | [address] | | | [place] [address] | + + + | Home Phone | | + + + | Preferred Language | Unknown | + + + | Marital Status | | + + + | Sabianist Affiliation | Unknown | + + + | Race | Unknown | + + + | Ethnic Group | Unknown | + + + Author + + + | Author | [facility] | | | and [place] | + + + | Organization | [facility] | | | and [...] Team Providers + +------+ + | Care Wire Spiral Binder Name | Role | Phone | + [...] Required | | radiculopath | Myra | [facility] | | | | | y Chronic | PA-C [address] | [address] | | | | | bilateral | [address], | AVE | | | | | low back | [address] | [place], [place] | | | | | pain with | [place] | [address] | | | | | bilateral | [address] | Phone: | | | | | sciatica | Phone: | [phone] | | | | | Neck pain on | [phone] | Fax: | | | | | right side | Fax: | [phone] | | | | | Procedures | [phone] | | | | | | HIM [...] + + | 12/15/ | Telephone | [facility] | Win, | Results, Imaging | | 2017 | | PHYSIATRY [address] | [place] [address] | | | | | [address] | [address] | | | | | [place], [place] | [place] [address] | | | | | [address] | [phone] | | | | | [phone] | | | +--------+ + + + [...]
--- OUTSIDE RECORDS SUMMARY | ~2020-01-20 | XMS | Encounter Summary ---
Demographics + + + | Address | [address] | | | [place] [address] | + + + | Home Phone [...] Organization | [facility] | | | and [place] [...] Team Providers + +------+ + | Care Test Engineering Manager Name | Role | Phone | [...] | | [place] | [place] [address] | | | | | [address] | [phone] | | | | | [phone] | | | +--------+ + + + [...]
--- OUTSIDE RECORDS SUMMARY | ~2020-01-20 | XMS | Encounter Summary ---
Demographics + + + | Address | [address] | | | [place] [address] | + + + | Home Phone | | + + + | Preferred Language | Unknown | + + + | Marital Status | | + + + | Advent Affiliation | Unknown | + + + | Race | Unknown | + + + | Ethnic Group | Unknown | + + + Author + + + | Author | [facility] | | | and [place] | + + + | Organization | [facility] | | | and [place] [...] Team Providers + +------+ + | Care Finisher Hand Name | Role | Phone | + [...] | [place], [place] | [place] [address] | | | | | [address] | [phone] | | | | | [phone] | | | +--------+ + + + [...]
--- OUTSIDE RECORDS SUMMARY | ~2020-01-20 | XMS | Encounter Summary ---
Demographics + + + | Address | [address] | | | [place] [address] | + + + | Home Phone | | + + + | Preferred Language | Unknown | + + + | Marital Status | | + + + | Quaker Affiliation | Unknown | + + + | Race | Unknown | + + + | Ethnic Group | Unknown | + + + Author + + + | Author | [facility] | | | and [place] | + + + | Organization | [facility] | | | and [place] [...] Team Providers + +------+ + | Care Advertising Space Clerk Name | Role | Phone | + [...] | | | [place], [place] | [place] [address] | | | | | [address] | [phone] | | | | | [phone] | | | +--------+ + + + [...]
--- OUTSIDE RECORDS SUMMARY | ~2020-01-20 | XMS | Clinical Summary ---
Demographics + + + | Address | [address] | | | [place] [address] | + + + | Home Phone [...] Team Providers + +------+ + | Care Soap Worker Name | Role | Phone | + +------+ + | Hayden Mueller DO | PCP | | + +------+ + Source Comments [facility] is fully live on both [facility] and [facility] Allergies + + + + + + [...] [place] | | | 0 (Home) | [address] | + +--------+ +--------+ + +
--- OUTSIDE RECORDS SUMMARY | ~2020-01-20 | XMS | Encounter Summary ---
Demographics + + + | Address | [address] | | | [place] [address] | + + + | Home Phone | | + + + | Preferred Language | Unknown | + + + | Marital Status | | + + + | Holiness Affiliation | Unknown | + + + | Race | Unknown | + + + | Ethnic Group | Unknown | + + + Author + + + | Author | [facility] | | | and [place] | + + + | Organization | [facility] | | | and [...] Team Providers + +------+ + | Care Hogshead Inspector Name | Role | Phone | + [...] | [place], [place] | [place] [address] | | | | | [address] | [phone] | | | | | [phone] | | | +--------+ + + + [...]
--- OUTSIDE RECORDS SUMMARY | ~2020-01-20 | XMS | Encounter Summary ---
Demographics + + + | Address | [address] | | | [place] [address] | + + + | Home Phone | | + + + | Preferred Language | Unknown | + + + | Marital Status | | + + + | Uatsdin Affiliation | Unknown | + + + | Race | White | + + + | Ethnic Group | Not or | + + + Author + + + | Author | [facility] | + + + | Organization | [facility] | + + + | Address | Unknown | + + + | Phone | Unavailable | + + + Support + + +---------+ + | Name | Relationship | Address | Phone | + + +---------+ + | Ruthann Crook | ECON | Unknown | | + + +---------+ + Care Team Providers + +------+ + | Care Oncology Radiation Physician Name | Role | Phone | + [...] | | HHT | MD Carlos | [facility] [address] | | | | | (hereditary | [address] | [address] | | | | | hemorrhagic | Behz[address] Cooper | [address] | | | | | telangiectas | Rd | [place] | | | | | ia) ([facility]) | [place], [place] | [facility], 2nd | | | | | Procedures | [address] | floor | | | | | TRANSTHORACI | Phone: | [place], [place] | | | | | C | [phone] | [address] | | | | | ECHOCARDIOGR | Fax: | Phone: | | | | | AM, ADULT | [phone] | [phone] | +--------+--------+ + + + + Encounter Details +--------+ + + + + | Date | Type | Department | Care Team | Description | +--------+ + + + + | 06/12/ | Hospital | Cardiac | | | | 2012 | Encounter | Non-Invasive Testing | | | | | | at [place] [place] | | | | | | [address] | | | | | | [address] | | | | | | [facility] | | | | | | [place], [place] | | | | | | [address] | | | | | | [phone] | | | +--------+ + + + [...]
--- OUTSIDE RECORDS SUMMARY | ~2020-01-20 | XMS | Encounter Summary ---
Demographics + + + | Address | [address] | | | [place] [address] | + + + | Home Phone | | + + + | Preferred Language | Unknown | + + + | Marital Status | | + + + | Gnosticism Affiliation | Unknown | + + + | Race | Unknown | + + + | Ethnic Group | Unknown | + + + Author + + + | Author | [facility] | | | and [place] | + + + | Organization | [facility] | | | and [...] Team Providers + +------+ + | Care Experimental Flight Test Mechanic Name | Role | Phone | [...] | | | [place], [place] | [place] [address] | | | | | [address] | [phone] | | | | | [phone] | | | +--------+--------+ + + + [...]
[~2020-01-20 12:47] MED LIST changes: +BACLOFEN10 MG PO; +FLOMAX0.4 MG PO; +METHYLPREDNISOLO4 M1 PO; +NORCO 5-325 TA1 EACH PO; +PROSCAR5 MG PO
[2020-01-20] MEDS ORDERED: PRAVACHOL20 MG PO (13:07)
[2020-01-20] MEDS ORDERED: GLIPIZIDE ER10 MG PO (14:01)
[2020-01-20] MEDS ORDERED: PANTOPRAZOLE SO40 MG PO (15:52)
--- NOTE | 2020-01-21 11:31 | EKG ---
[facility] [address] [place] [address] Signed Normal sinus rhythm Normal ECG No previous ECGs available Confirmed by CRISTHIAN TESFAYE DO ([id number]) on 01/21/2020 11:31:52 AM Electronically Signed By: CRISTHIAN TESFAYE DO 01/21/20 1131 PATIENT NAME: SULEMAN SERRATO Electrocardiogram DATE OF : 63 PHYSICIAN: CRISTHIAN TESFAYE DO REPORT #: [id number] REPORT IS CONFIDENTIAL AND NOT TO BE RELEASED WITHOUT AUTHORIZATION
== END 2020-01-20 16:15 | disposition home or self-care (01) ==
LOC: ED 12:47
DX: R10.13 Epigastric pain (principal); I10 Essential (primary) hypertension; K21.9 Gastro-esophageal reflux disease without esophagitis; E11.9 Type 2 diabetes mellitus without complications; Z88.0 Allergy status to penicillin; Z88.2 Allergy status to sulfonamides; Z88.1 Allergy status to other antibiotic agents; Z79.899 Other long term (current) drug therapy
CPT/HCPCS: 76705; 80053; 81001; 83690; 84484; 85025; 93005; 93010; 99284-25

== ENCOUNTER 2021-09-19 15:33 | Emergency (ER) | payer OTHER ==
[~2021-09-19] VITALS: Ht 175.3 cm; Wt 83.9 kg
[~2021-09-19 15:33] MED LIST changes: +GLIPIZIDE ER10 MG PO; +PANTOPRAZOLE SO40 MG PO; +PRAVACHOL20 MG PO
--- OUTSIDE RECORDS SUMMARY | 2021-09-19 15:36 | XMS ---
PreManage Notification: SULEMAN SERRATO Security Die Sizer Events No recent Security Events currently on file CRITERIA MET - [facility] CARE PROVIDERS There are no care providers on record at this time. Linda has no Care Guidelines for this patient. Home VISIT COUNT (12 MO.) 1 JT Reza TOTAL 1 NOTE: Visits indicate total known visits. ED/UCC VISIT TRACKING (12 MO.) 09/19/2021 15:34 [facility] [place] TYPE: Emergency COMPLAINT: - FALL INPATIENT VISIT TRACKING (12 MO.) No inpatient visits to display in this time frame [email or web address]
== END 2021-09-19 23:28 | disposition home or self-care (01) ==
LOC: ED 15:33
DX: S83.411A Sprain of medial collateral ligament of right knee, initial encounter (principal); W18.41XA Slipping, tripping and stumbling without falling due to stepping on object, initial encounter; I10 Essential (primary) hypertension; K21.9 Gastro-esophageal reflux disease without esophagitis; E11.9 Type 2 diabetes mellitus without complications; Z88.2 Allergy status to sulfonamides; Z88.8 Allergy status to other drugs, medicaments and biological substances; Z88.1 Allergy status to other antibiotic agents; Z88.0 Allergy status to penicillin; Z79.899 Other long term (current) drug therapy
CPT/HCPCS: 73560; 99283-25